=== PATIENT | female | born 1955 | race Caucasian/White ===

== ENCOUNTER 2017-12-12 11:24 | Observation (INO) ==
[2017-12-12] MEDS ORDERED: Aspirin 81 MG TAB.CHEW PO ONE (11:46)
--- NOTE | 2017-12-12 11:49 | Emergency Department Note ---
Disposition Clinical Impression: Chest pain Qualifiers: Chest pain type: unspecified Qualified Code(s): R07.9 - Chest pain, unspecified Disposition: Admitted As Inpatient Condition: Fair Referrals: Sharon Case MD [Primary Care Provider] - Forms: ED Satisfaction Letter Chest Pain HPI - General Chief Complaint: ED Chest Pain Stated Complaint: CP Time Seen by Provider: 12/12/17 11:37 Source: patient Limitations: no limitations Vital Signs Reviewed: Yes Nursing Notes Reviewed: Yes - History of Present Illness HPI Narrative: 62 old female presents emergency Department with chest pain. Approximately 6: 30 AM she was woke with chest pain and jaw pain pain was sharp in nature in the chest centrally radiating to the back and up into the jaw. Patient took several nitros and went back to bed. Woke up later and had a little bit of soreness. She says the pain is largely resolved. She came in because she has had 5 stents in 3 heart attacks. She says the pain from each one has been different and she is not sure if she is having a heart attack currently. No real sweating or diaphoresis. Patient denies shortness of breath. She says when she moves around the symptoms or maybe a little bit worsened and when she lies still she is okay. Pt complaint: chest pain Onset (ago): hour(s) Duration: intermittent, now resolved Onset: during rest Pain Location: substernal Severity: mild Severity scale (1-10): 2 Quality: sharp Pain Radiation: neck, jaw/teeth Improves with: nitroglycerin Worsens with: exertion Treatments prior to arrival chest pain: nitroglycerin - Related Data On Oral Contraceptives: No Home Medications Medication Instructions Recorded Confirmed Albuterol Sulfate [Proair Hfa] 2 puff IH Q4H PRN 09/10/15 12/12/17 Atenolol [Tenormin] 25 mg PO QAM 09/10/15 12/12/17 Clopidogrel [Plavix] 75 mg PO QAM 09/10/15 12/12/17 FLUoxetine HCl [PROzac] 20 mg PO QAM 09/10/15 12/12/17 Fenofibrate Nanocrystallized 145 mg PO QAM 09/10/15 12/12/17 [Tricor] Nitroglycerin [Nitrostat] 0.4 mg SL AD PRN 09/10/15 12/12/17 Pantoprazole Sodium [Protonix] 20 mg PO QAM 09/10/15 12/12/17 lamoTRIgine [Lamictal] 100 mg PO QAM 09/10/15 12/12/17 Aspirin Enteric Coated [Aspirin EC] 81 mg PO DAILY 12/12/17 12/12/17 Cholecalciferol (D-3) [Vitamin D] 5,000 unit PO DAILY 12/12/17 12/12/17 Loratadine/Pseudophed (12 HR) 1 tab PO DAILY 12/12/17 12/12/17 [Claritin D (12HR)] Losartan [Cozaar] 25 mg PO DAILY 12/12/17 12/12/17 Montelukast [Singulair] 10 mg PO DAILY 12/12/17 12/12/17 Ubidecarenone [Co Q-10] 10 mg PO DAILY 12/12/17 12/12/17 Allergies Allergy/AdvReac Type Severity Reaction Status Date / Time Penicillins Allergy Hives Verified 12/12/17 12:11 Nxfgzlb-Eue-Hoh Reductase Allergy Joint Pain Verified 12/12/17 12:11 Inhibitor [Statins] All systems ED: reviewed and negative except as stated. 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 - Social History Smoking Status: Current every day smoker Alcohol use: Reports: occasionally Drug use: Reports: marijuana Physical Exam - General Limitations: no limitations General appearance: alert, in no apparent distress - Head Head exam: atraumatic - Eye Eye exam: Present: normal appearance, PERRL - ENT ENT exam: normal exam, normal oropharynx - Neck Neck exam: Present: normal inspection - Chest Chest inspection: Present: normal inspection - Respiratory Respiratory exam: Present: normal lung sounds bilaterally - Cardiovascular Cardiovascular exam: Present: regular rate, normal rhythm - Abdominal Exam Abdominal exam: Present: soft, Non-Tender - Extremities Exam Extremities exam: Present: normal inspection - Expanded Lower Extremity Exam Hip/Pelvis exam: Present: normal inspection - Neurological Exam Neurological exam: Present: alert, oriented X3 - Psychiatric Psychiatric exam: Present: normal affect, normal mood - Skin Skin exam: Present: warm, dry, intact Course Vital Signs Temperature 97.8 F 12/12/17 11:31 Pulse Rate 81 12/12/17 11:31 Respiratory Rate 18 12/12/17 11:31 Blood Pressure 141/76 12/12/17 11:31 O2 Sat by Pulse Oximetry 94 12/12/17 11:31 Temperature 97.8 F 12/12/17 11:33 Pulse Rate 81 12/12/17 11:33 Respiratory Rate 18 12/12/17 11:33 Blood Pressure 141/76 12/12/17 11:33 O2 Sat by Pulse Oximetry 94 12/12/17 11:33 Oxygen Delivery Oxygen Delivery Room Air Chest Pain - MDM Narrative Medical decision making narrative: We will do a usual cardiac workup. We will also give the patient aspirin. Initial EKG does not show acute ischemic changes. There is no old one for comparison. Because of the patient's history she will end up getting admitted for formal rule out and additional evaluation and treatment. Patient was reevaluated several times throughout her stay she was pain-free throughout those assessments. Additionally she was informed of her test results and need for admission for further evaluation treatment. Discussed case and the hospitalist service who agreed to accept the patient for admission. Hemodynamically she remained stable while in the emergency department. - Lab Data Lab results reviewed: Yes I reviewed the patient's lab results. Result diagrams: 12/12/17 11:57 12/12/17 11:57 Lab Results 12/12/17 12/12/17 12/12/17 Range/Units 11:57 11:57 11:57 WBC 8.2 (4.3-11.1) K/mcL RBC 4.51 (3.82-4.97) M/mcL Hgb 14.1 (11.5-15.4) g/dL Hct 42.7 (35.3-44.9) % MCV 94.7 (83.0-100.0) fL MCH 31.3 (28.0-33.3) pg MCHC 33.0 (31.6-35.5) g/dL RDW 13.3 (11.5-14.5) % Plt Count 205 (140-400) K/mcL MPV 10.9 (9.4-12.4) fL Immature Gran % 0.4 (0-4) % Seg Neutrophils % 64.6 % Lymphocytes % 18.2 % Monocytes % 12.0 % Eosinophils % 4.2 % Basophils % 0.6 % Neutrophils # 5.3 (1.6-8.9) K/mcL Lymphocytes # 1.5 (0.6-4.6) K/mcL Monocytes # 1.0 (0.0-1.3) K/mcL Eosinophils # 0.3 (0.0-0.6) K/mcL Basophils # 0.1 (0.0-0.2) K/mcL PT 11.9 (9.4-12.1) Seconds INR 1.1 APTT 30.7 (26.0-36.0) Seconds Sodium (136-145) mEq/L Potassium (3.5-5.1) mEq/L Chloride (98-107) mEq/L Carbon Dioxide (23-29) mEq/L BUN (8-23) mg/dL Creatinine (0.60-1.20) mg/dL Est GFR ( Amer) (> 60) Est GFR (Non-Af Amer) (> 60) BUN/Creatinine Ratio (6-26) Glucose (70-105) mg/dL Calculated Osmolality (280-300) Calcium (8.6-10.3) mg/dL Troponin I (< 0.04) ng/mL B-Natriuretic Peptide 14 (Less than 100) pg/mL 12/12/17 Range/Units 11:57 WBC (4.3-11.1) K/mcL RBC (3.82-4.97) M/mcL Hgb (11.5-15.4) g/dL Hct (35.3-44.9) % MCV (83.0-100.0) fL MCH (28.0-33.3) pg MCHC (31.6-35.5) g/dL RDW (11.5-14.5) % Plt Count (140-400) K/mcL MPV (9.4-12.4) fL Immature Gran % (0-4) % Seg Neutrophils % % Lymphocytes % % Monocytes % % Eosinophils % % Basophils % % Neutrophils # (1.6-8.9) K/mcL Lymphocytes # (0.6-4.6) K/mcL Monocytes # (0.0-1.3) K/mcL Eosinophils # (0.0-0.6) K/mcL Basophils # (0.0-0.2) K/mcL PT (9.4-12.1) Seconds INR APTT (26.0-36.0) Seconds Sodium 137 (136-145) mEq/L Potassium 4.0 (3.5-5.1) mEq/L Chloride 105 (98-107) mEq/L Carbon Dioxide 24 (23-29) mEq/L BUN 23 (8-23) mg/dL Creatinine 0.70 (0.60-1.20) mg/dL Est GFR ( Amer) > 60 (> 60) Est GFR (Non-Af Amer) > 60 (> 60) BUN/Creatinine Ratio 33 H (6-26) Glucose 130 H (70-105) mg/dL Calculated Osmolality 289 (280-300) Calcium 9.5 (8.6-10.3) mg/dL Troponin I < 0.03 (< 0.04) ng/mL B-Natriuretic Peptide (Less than 100) pg/mL - Radiology Data Radiology results reviewed: Yes I reviewed the patient's radiology results. - EKG Data EKG attestation: Yes I reviewed and interpreted this EKG. EKG shows normal: sinus rhythm Rate: normal Rhythm: NSR Interpretation: no acute changes
[2017-12-12 12:13] LABS: Basophils # 0.1 K/mcL (0.0-0.2); Basophils % 0.6 %; Eosinophils # 0.3 K/mcL (0.0-0.6); Eosinophils % 4.2 %; Hematocrit 42.7 % (35.3-44.9); Hemoglobin 14.1 g/dL (11.5-15.4); Immature Granulocytes % 0.4 % (0-4); Lymphocytes # 1.5 K/mcL (0.6-4.6); Lymphocytes % 18.2 %; Mean Corpuscular Hemoglobin 31.3 pg (28.0-33.3); Mean Corpuscular Volume 94.7 fL (83.0-100.0); Mean Platelet Volume 10.9 fL (9.4-12.4); Neutrophils # 5.3 K/mcL (1.6-8.9); Platelet Count 205 K/mcL (140-400); Red Blood Count 4.51 M/mcL (3.82-4.97); Red Cell Distribution Width 13.3 % (11.5-14.5); Segmented Neutrophils % 64.6 %
[2017-12-12 12:22] LABS: INR 1.1; Prothrombin Time 11.9 Seconds (9.4-12.1)
[2017-12-12 12:25] LABS: Activated Partial Thrombo Time 30.7 Seconds (26.0-36.0)
[2017-12-12 13:11] LABS: Troponin I < 0.03 ng/mL (< 0.04)
[2017-12-12 13:16] LABS: BUN/Creatinine Ratio 33 (6-26); Blood Urea Nitrogen 23 mg/dL (8-23); Calcium 9.5 mg/dL (8.6-10.3); Carbon Dioxide 24 mEq/L (23-29); Chloride 105 mEq/L (98-107); Glucose 130 mg/dL (70-105); Osmolality,Calculated 289 (280-300); Sodium 137 mEq/L (136-145); eGFR For African Americans > 60 (> 60); eGFR For Non-African Americans > 60 (> 60)
--- NOTE | 2017-12-12 14:04 | Internal Med History&Physical ---
Date of Encounter: 12/12/17 Time of Encounter: 13:57 Internal Medicine - H&P: HPI Chief complaint: chest pain Admitted From: Home Plans for Post Hospital Care: Home History of present illness: Ms. Kaplan is a 62 year old female who has history of a CAD multiple stents depression anxiety chronic back pain presenting emergency room for chest pain. Chest pain started at 6:30 AM located to the mid of chest, pressure-like, radiated to the back, associated jaw pain, any numbing tingling all over the body. She took her several nitrates went to sleep. after she woke up,she had lightheadedness and the some tingling numbing all over again. Patient is alert oriented 3 currently chest pain free. Lab Was unremarkable, troponin is negative, EKG has no ST elevation. Patient has CAD stated post of 5 stents, last the stents was 2011. She follows with Dr. Abraham, last stress test in August 2015 was negative for ischemia. Patient continues smoking, half pack daily we will provide a nicotine patch. She also has some wheezings from COPD. Patient is admitted to rule out [place] will do a CTA to rule out aneurysm. Past Med Surg Social Fam HX - Past Medical History Medical history: myocardial infarction Psychiatric history: depression - Past Surgical History Surgical History: no surgical history - Social History Smoking Status: Current every day smoker Smokeless Tobacco Status: No Alcohol use: occasionally Drug use: marijuana - Family History Father Living Status: Hx Family Cardiac Disorders: Yes Hx Family Respiratory Disorders: Yes Internal Medicine - H&P: Meds Albuterol Sulfate [Proair Hfa] 2 puff IH Q4H PRN 09/10/15 [History] Atenolol [Tenormin] 25 mg PO QAM 09/10/15 [History] Clopidogrel [Plavix] 75 mg PO QAM 09/10/15 [History] FLUoxetine HCl [PROzac] 20 mg PO QAM 09/10/15 [History] Fenofibrate Nanocrystallized [Tricor] 145 mg PO QAM 09/10/15 [History] Nitroglycerin [Nitrostat] 0.4 mg SL AD PRN 09/10/15 [History] Pantoprazole Sodium [Protonix] 20 mg PO QAM 09/10/15 [History] lamoTRIgine [Lamictal] 100 mg PO QAM 09/10/15 [History] Aspirin Enteric Coated [Aspirin EC] 81 mg PO DAILY 12/12/17 [History] Cholecalciferol (D-3) [Vitamin D] 5,000 unit PO DAILY 12/12/17 [History] Loratadine/Pseudophed (12 HR) [Claritin D (12HR)] 1 tab PO DAILY 12/12/17 [ History] Losartan [Cozaar] 25 mg PO DAILY 12/12/17 [History] Montelukast [Singulair] 10 mg PO DAILY 12/12/17 [History] Ubidecarenone [Co Q-10] 10 mg PO DAILY 12/12/17 [History] 3 Allergy/AdvReac Type Severity Reaction Status Date / Time Penicillins Allergy Hives Verified 12/12/17 12:11 Rqbxqkj-Oim-Fgq Reductase Allergy Joint Pain Verified 12/12/17 12:11 Inhibitor [Statins] All Systems PM: A 10-system review of systems was performed and is negative for pertinent findings except as documented above in the HPI. - Constitutional Vitals: Temp Pulse Resp BP Pulse Ox 97.8 F 85 18 132/98 96 12/12/17 11:33 12/12/17 13:40 12/12/17 13:40 12/12/17 13:40 12/12/17 13:40 General appearance: Present: A&O X 3, pleasant, answers questions appropriately Exam: CONSTITUTIONAL: Patient appears as an age appropriate female well developed, in no acute distress. EYES Clear sclerae, bilateral pupils are equal, reactive to light and accommodation. Extraocular movements are intact RESPIRATORY: No accessory muscle use, bilateral scant wheezing, no crackles/ rales. CARDIOVASCULAR: Regular heart rate, normal S1 and S2, no murmurs GASTROINTESTINAL: bowel sounds present, soft, no tenderness. No hepatosplenomegaly. No bilateral CVA tenderness MUSCULOSKELETAL: Joints in normal range of motion, no clubbing, no edema, no cyanosis. Bilateral peripheral pulses 2+ LYMPHATIC no lymphadenopathy in neck, groin and axilla bilaterally, no thyromegaly. NEUROLOGIC: CN II to XII are grossly intact, no focal neurological deficit. Deep tendon reflexes 2+ bilaterally. Normal light touch sensation to upper and lower extremity PSYCHIATRIC: Oriented x3, with good insight, mood is euthymic. No hallucinations or delusions. SKIN: Skin warm and dry, no rashes, no open wound. Internal Med - H&P Results - Labs CBC & Chem 7: 12/12/17 11:57 12/12/17 11:57 Labs: Short CBC 12/12/17 Range/Units 11:57 WBC 8.2 (4.3-11.1) K/mcL Hgb 14.1 (11.5-15.4) g/dL Hct 42.7 (35.3-44.9) % Plt Count 205 (140-400) K/mcL Neutrophils # 5.3 (1.6-8.9) K/mcL BMP 12/12/17 11:57 Sodium 137 Potassium 4.0 Chloride 105 Carbon Dioxide 24 BUN 23 Creatinine 0.70 Glucose 130 H Calcium 9.5 Cardiac Enzymes 12/12/17 Range/Units 11:57 Troponin I < 0.03 (< 0.04) ng/mL - Impressions ITS Impressions Chest X-Ray 12/12/17 11:46 IMPRESSION: Stable chest without acute process. D/ / 12/12/2017 12:29:10 Austin Myers MD / [facility] Interpreting Provider: Austin Myers MD - Assessment and plan (1) Chest pain Current Visit: Yes Status: Acute Assessment and plan: chest pain insetting of CAD, will follow up 3 trop will do aneurysm study due to smoking hx to r/o dissection Qualifiers: Chest pain type: unspecified Qualified Code(s): R07.9 - Chest pain, unspecified (2) CAD (coronary artery disease) Current Visit: Yes Status: Chronic Assessment and plan: contineu ASA, plavix Qualifiers: Coronary Disease-Associated Artery/Lesion type: [place] artery [place] vs. transplanted heart: [place] heart Associated angina: with unspecified angina Qualified Code(s): I25.119 - Atherosclerotic heart disease of [place] coronary artery with unspecified angina pectoris (3) HLD (hyperlipidemia) Current Visit: Yes Status: Acute Qualifiers: Hyperlipidemia type: unspecified Qualified Code(s): E78.5 - Hyperlipidemia , unspecified (4) HTN (hypertension) Current Visit: Yes Status: Chronic Qualifiers: Hypertension type: essential hypertension Qualified Code(s): I10 - Essential (primary) hypertension (5) Depression Current Visit: Yes Status: Chronic Qualifiers: Depression Type: unspecified Qualified Code(s): F32.9 - Major depressive disorder, single episode, unspecified (6) Tobacco abuse Current Visit: Yes Status: Chronic Assessment and plan: smoking cessation discussed, nicotine patch - Time Spent With Patient Total time spent is greater than 50% in coordination of care (as documented) at patient's floor/unit and/or counseling patient:
[2017-12-12] MEDS ORDERED: Nitroglycerin 0.4 MG TAB.SUBL SL PRN (14:06)
[2017-12-12] MEDS ORDERED: Naloxone 0.4 MG/ML INJ IVP PRN (14:12)
[2017-12-12] MEDS ORDERED: Isovue-370 500 ML INFUS..BTL IV ONE (14:15)
[2017-12-12] MEDS: Ringers Solution, Lactated 1,000 ML IVC SCH (14:58)
[2017-12-12] MEDS: Nicotine 21 MG PATCH.TD24 TD SCH (16:42)
[2017-12-13 02:50] LABS: BUN/Creatinine Ratio 28 (6-26); Blood Urea Nitrogen 19 mg/dL (8-23); Calcium 9.6 mg/dL (8.6-10.3); Carbon Dioxide 25 mEq/L (23-29); Chloride 106 mEq/L (98-107); Glucose 105 mg/dL (70-105); Magnesium 1.9 mg/dL (1.6-2.6); Osmolality,Calculated 287 (280-300); Potassium 3.7 mEq/L (3.5-5.1); Sodium 137 mEq/L (136-145); eGFR For African Americans > 60 (> 60); eGFR For Non-African Americans > 60 (> 60)
[2017-12-13] MEDS ORDERED: Loratadine/Pseudophed (12 HR) 1 EACH TABLET PO SCH (09:00)
[2017-12-13] MEDS ORDERED: Fenofibrate 54 MG TABLET PO SCH (09:00)
[2017-12-13] MEDS ORDERED: FLUoxetine 20 MG CAPSULE PO SCH (09:00)
[2017-12-13] MEDS ORDERED: Aspirin Enteric Coated 81 MG Tablet PO SCH (09:00)
[2017-12-13] MEDS ORDERED: lamoTRIgine 100 MG TABLET PO SCH (09:00)
[2017-12-13] MEDS ORDERED: UBIDECARENONE 10 MG PO SCH (09:00)
[2017-12-13] MEDS ORDERED: Cholecalciferol (D-3) 1,000 UNIT TABLET PO SCH (09:00)
[2017-12-13] MEDS: Nicotine 21 MG PATCH.TD24 TD SCH (09:30)
[2017-12-13] MEDS: Ringers Solution, Lactated 1,000 ML IVC SCH (09:36)
[2017-12-13 12:59] VITALS: BP 102/69
--- NOTE | 2017-12-13 13:44 | Discharge Summary ---
- NOTES TO OUTPATIENT PROVIDER Notes to Outpatient Provider: Pt was admitted for chest pain with associated lightheadedness, tingling, chanda jaw pain and facial pain that was relieved with ntg. Stress negative in Aug with a gated EF of greater than 70%. Patient has not had an echocardiogram. Troponins are negative. Recommended patient stay for echocardiogram, patient declined and signed out AMA. I recommended patient follow-up with cardiology, as well as primary care. She says that she is going to be worked up for GI symptoms with an EGD in the near future. Orders not resulted at time of discharge: Pending orders 12/12/17 14:12 ECG 12 lead ECG [ECG] Routine 12/13/17 13:01 EV echocardiogram Routine 12/14/17 04:00 Basic Metabolic Panel AM 0400 Complete Blood Count [HEME] AM 0400 Date of Encounter: 12/13/17 Time of Encounter: 13:10 - Discharge Diagnosis (1) Chest pain Priority: Primary Status: Acute Assessment and Plan: Pt denies chest pain upon assessment. REports that she had chest pain with associated facial and jaw pain that was relieved with NTG x1 prior to arrival. pt reports that pain stated at 0630 a.m. onthe morning of admission and was described as pressure with radiation to left mid back, and numbness and tingling to entire body. Prior history of MD and CAD with 5 stents, most recently in 2011. . Troponins negative, CXR negative, EKG without acute ST changes. Stress from 2016 negative. Pt did not wish to stay for echo and states that she wants to go home. I recommended echo and cardiology consultation and pt declined, states that she wants to go home. Pt with multiple risk factors including morbid obesity, smoking, HTN, HLD, and DM. Pt is going to sign out AMA. Qualifiers: Chest pain type: unspecified Qualified Code(s): R07.9 - Chest pain, unspecified (2) HLD (hyperlipidemia) Priority: Secondary Status: Chronic Assessment and Plan: Continue home medications. Qualifiers: Hyperlipidemia type: unspecified Qualified Code(s): E78.5 - Hyperlipidemia , unspecified (3) CAD (coronary artery disease) Priority: Secondary Status: Chronic Assessment and Plan: Continue ASA, Plavix, Tricor, and antihypertensives. Pt does not appear to be on BB. Qualifiers: Coronary Disease-Associated Artery/Lesion type: [place] artery [place] vs. transplanted heart: [place] heart Associated angina: with unspecified angina Qualified Code(s): I25.119 - Atherosclerotic heart disease of [place] coronary artery with unspecified angina pectoris (4) Depression Priority: Secondary Status: Chronic Assessment and Plan: Chronic. Continue home medications. Qualifiers: Depression Type: unspecified Qualified Code(s): F32.9 - Major depressive disorder, single episode, unspecified (5) HTN (hypertension) Priority: Secondary Status: Chronic Assessment and Plan: Chronic. Stable. Continue home medications. Qualifiers: Hypertension type: essential hypertension Qualified Code(s): I10 - Essential (primary) hypertension (6) DMII (diabetes mellitus, type 2) Priority: Secondary Status: Chronic Assessment and Plan: Pt is not on any po medications. Continue diet control, last A1c 5.5% in 03/05 Qualifiers: Diabetes mellitus complication status: with unspecified complications Qualified Code(s): E11.8 - Type 2 diabetes mellitus with unspecified complications (7) DVT prophylaxis Priority: Secondary Status: Acute Assessment and Plan: Pt has been ambulatory (8) History of heart attack Priority: Secondary Status: Chronic Assessment and Plan: Prior history. Hospital course: Ms. Kaplan is a 62 year old female - Time Spent with Patient Total time spent providing and/or coordinating discharge services: - Discharge Medications Home Medications: Albuterol Sulfate [Proair Hfa] 2 puff IH Q4H PRN 09/10/15 [History] Atenolol [Tenormin] 25 mg PO QAM 09/10/15 [History] Clopidogrel [Plavix] 75 mg PO QAM 09/10/15 [History] FLUoxetine HCl [Prozac] 20 mg PO QAM 09/10/15 [History] Fenofibrate Nanocrystallized [Tricor] 145 mg PO QAM 09/10/15 [History] Nitroglycerin [Nitrostat] 0.4 mg SL AD PRN 09/10/15 [History] Pantoprazole Sodium [Protonix] 20 mg PO QAM 09/10/15 [History] lamoTRIgine [Lamictal] 100 mg PO QAM 09/10/15 [History] Aspirin Enteric Coated [Aspirin EC] 81 mg PO DAILY 12/12/17 [History] Cholecalciferol (D-3) [Vitamin D] 5,000 unit PO DAILY 12/12/17 [History] Loratadine/Pseudophed (12 HR) [Claritin D (12HR)] 1 tab PO DAILY 12/12/17 [ History] Losartan [Cozaar] 25 mg PO DAILY 12/12/17 [History] Montelukast [Singulair] 10 mg PO DAILY 12/12/17 [History] Ubidecarenone [Co Q-10] 10 mg PO DAILY 12/12/17 [History] Allergies/Adverse Reactions: 3 Allergy/AdvReac Type Severity Reaction Status Date / Time Penicillins Allergy Hives Verified 12/12/17 12:11 Woykndl-Rno-Swv Reductase Allergy Joint Pain Verified 12/12/17 12:11 Inhibitor [Statins] Date of admission: 12/12/17 13:59 Primary care physician: Sharon Case Discharging clinician: Rebecca Chaudhary Anticipated date of discharge: 12/13/17 - Constitutional Vitals: Temp Pulse Resp BP Pulse Ox 98.9 F 50 14 102/69 98 12/13/17 12:58 12/13/17 12:58 12/13/17 12:58 12/13/17 12:58 12/13/17 12:58 General appearance: Present: cooperative, A&O X 3, pleasant, no acute distress, answers questions appropriately - Head Head exam: Present: atraumatic, normal inspection, normocephalic - Eye Eye exam: Present: normal appearance, conjuntiva pink, sclera anicteric - Neck Neck exam general surgery: Present: supple, trachea midline. Absent: lymphadenopathy, tenderness - Respiratory Respiratory exam: Present: CTAB. Absent: accessory muscle use, chest wall tenderness, rales, respiratory distress, rhonchi, wheezes - Cardiovascular Cardiovascular exam: Present: RRR, +S1, +S2. Absent: diastolic murmur, gallop, rubs, systolic murmur - GI/Abdominal GI/Abdominal exam: Present: normal bowel sounds, soft, no peritoneal signs. Absent: distended, hepatomegaly, tenderness - Extremities Exam Extremities exam: Present: normal capillary refill, normal inspection, warm, radial pulses palpable and symmetrical. Absent: calf tenderness, cyanotic, pedal edema, tenderness - Neurological Exam Neurological exam: Present: alert, oriented X3, no focal deficits. Absent: altered, facial droop, speech deficit - Skin Skin exam: Present: dry, intact, normal color, warm. Absent: rash - Patient Status Disposition: Left Against Medical Advice Condition: Good - Discharge Instructions Follow Up With: Sharon Case MD [Primary Care Provider] -
--- NOTE | 2017-12-15 12:40 | Electrocardiograph Report ---
[place] [id number] Test Date: 2017-12-12 Pat Name: [facility] Department: [facility] Room: 3B Gender: F Resource Program Teacher: SHAR : 1955 Requested By: Guy Castillo Order Number: [id number] Reading MD: Jayson Abraham Measurements Intervals [place] Rate: 77 P: 7 CA: 175 QRS: 9 QRSD: 86 T: 56 QT: 371 QTc: 402 Interpretive Statements SINUS RHYTHM POSSIBLE LEFT ATRIAL ENLARGEMENT POSSIBLE RIGHT VENTRICULAR CONDUCTION DELAY Electronically Signed On 12-15-2017 12:39:26 EDT by Jayson Abraham
== END 2017-12-13 14:35 | disposition left against medical advice (07) ==
LOC: 3BNU 11:24 → EMEROO 11:24 → 3BNU 14:32
PROVIDERS: ADMIT Hospitalist; ATTEND Hospitalist

== ENCOUNTER 2019-11-18 08:44 | Inpatient (IN) ==
[2019-11-18] MEDS ORDERED: Nitroglycerin 0.4 MG TAB.SUBL SL PRN ×2 (08:45→10:09)
[2019-11-18] MEDS ORDERED: Aspirin 81 MG TAB.CHEW PO ONE (08:45)
[2019-11-18 09:13] LABS: Basophils # 0.1 K/mcL (0.0-0.2); Basophils % 0.6 %; Eosinophils # 0.3 K/mcL (0.0-0.6); Eosinophils % 3.6 %; Hematocrit 41.4 % (35.3-44.9); Hemoglobin 13.4 g/dL (11.5-15.4); Immature Granulocytes % 0.5 % (0-4); Lymphocytes # 1.7 K/mcL (0.6-4.6); Lymphocytes % 19.5 %; Mean Corpuscular HGB Conc 32.4 g/dL (31.6-35.5); Mean Corpuscular Volume 95.8 fL (83.0-100.0); Mean Platelet Volume 10.9 fL (9.4-12.4); Monocytes # 1.2 K/mcL (0.0-1.3); Monocytes % 13.3 %; Neutrophils # 5.4 K/mcL (1.6-8.9); Platelet Count 219 K/mcL (140-400); Red Blood Count 4.32 M/mcL (3.82-4.97); Red Cell Distribution Width 13.2 % (11.5-14.5); Segmented Neutrophils % 62.5 %; White Blood Count 8.7 K/mcL (4.3-11.1)
[2019-11-18 09:19] LABS: Prothrombin Time 11.6 Seconds (9.4-12.1)
[2019-11-18 09:22] LABS: Activated Partial Thrombo Time 31.5 Seconds (26.0-36.0)
[2019-11-18 09:33] LABS: BUN/Creatinine Ratio 29 (6-26); Blood Urea Nitrogen 26 mg/dL (8-23); Calcium 9.6 mg/dL (8.6-10.3); Carbon Dioxide 23 mEq/L (23-29); Chloride 102 mEq/L (98-107); Glucose 135 mg/dL (70-105); Osmolality,Calculated 287 (280-300); Sodium 135 mEq/L (136-145); Troponin I < 0.03 ng/mL (< 0.04); eGFR For African Americans > 60 (> 60); eGFR For Non-African Americans > 60 (> 60)
[2019-11-18] MEDS ORDERED: Naloxone 0.4 MG/ML INJ IVP PRN (10:08)
[2019-11-18] MEDS: Fenofibrate 54 MG TABLET PO SCH (11:36)
[2019-11-18] MEDS: Aspirin Enteric Coated 81 MG Tablet PO SCH (11:36)
[2019-11-18] MEDS: FLUoxetine 20 MG CAPSULE PO SCH (11:36)
[2019-11-18] MEDS: Cholecalciferol (D-3) 1,000 UNIT (25MCG) TABLET PO SCH (11:36)
[2019-11-18] MEDS: atenoloL 25 MG TABLET PO SCH (11:36)
[2019-11-18] MEDS: Simethicone 80 MG TAB.CHEW PO PRN (19:52)
[2019-11-19 01:02] LABS: Basophils # 0.1 K/mcL (0.0-0.2); Basophils % 0.7 %; Eosinophils # 0.2 K/mcL (0.0-0.6); Eosinophils % 2.6 %; Hematocrit 39.9 % (35.3-44.9); Immature Granulocytes % 0.3 % (0-4); Lymphocytes # 2.3 K/mcL (0.6-4.6); Lymphocytes % 26.1 %; Mean Corpuscular HGB Conc 32.6 g/dL (31.6-35.5); Mean Corpuscular Hemoglobin 31.2 pg (28.0-33.3); Mean Corpuscular Volume 95.7 fL (83.0-100.0); Mean Platelet Volume 11.1 fL (9.4-12.4); Monocytes # 1.2 K/mcL (0.0-1.3); Monocytes % 13.8 %; Platelet Count 213 K/mcL (140-400); Red Blood Count 4.17 M/mcL (3.82-4.97); Red Cell Distribution Width 13.2 % (11.5-14.5); Segmented Neutrophils % 56.5 %; White Blood Count 8.8 K/mcL (4.3-11.1)
[2019-11-19 01:04] LABS: Estimated Average Glucose 134 mg/dl
[2019-11-19 01:18] LABS: Chol/HDL Ratio 2.3 (0-4.9)
[2019-11-19 01:19] LABS: BUN/Creatinine Ratio 24 (6-26); Blood Urea Nitrogen 23 mg/dL (8-23); Calcium 9.7 mg/dL (8.6-10.3); Carbon Dioxide 25 mEq/L (23-29); Chloride 102 mEq/L (98-107); Glucose 112 mg/dL (70-105); Osmolality,Calculated 284 (280-300); Potassium 4.1 mEq/L (3.5-5.1); Sodium 135 mEq/L (136-145); eGFR For African Americans > 60 (> 60); eGFR For Non-African Americans 58 (> 60)
[2019-11-19] MEDS ORDERED: Regadenoson 0.4 MG/5 ML SYRINGE IVP ONE (06:10)
[2019-11-19] MEDS ORDERED: lamoTRIgine 100 MG TABLET PO SCH (09:00)
[2019-11-19] MEDS: Cholecalciferol (D-3) 1,000 UNIT (25MCG) TABLET PO SCH (12:41)
[2019-11-19] MEDS: Isosorbide MONOnitrate (24 HR) 30 MG TAB.ER.24H PO SCH (12:41)
[2019-11-19] MEDS: atenoloL 25 MG TABLET PO SCH (12:41)
[2019-11-19] MEDS: FLUoxetine 20 MG CAPSULE PO SCH (12:41)
[2019-11-19] MEDS: lamoTRIgine 100 MG TABLET PO SCH (12:41)
[2019-11-19] MEDS: Aspirin Enteric Coated 81 MG Tablet PO SCH (12:41)
[2019-11-19] MEDS: Fenofibrate 54 MG TABLET PO SCH (12:41)
[2019-11-19] MEDS: PRAVASTATIN SODIUM 20 MG PO SCH (12:43)
[2019-11-19] MEDS: Simethicone 80 MG TAB.CHEW PO PRN (20:39)
[2019-11-19] MEDS ORDERED: Morphine Sulfate 2 MG/ML SYRINGE IVP ONE (23:06)
[2019-11-20] MEDS: Fenofibrate 54 MG TABLET PO SCH (09:45)
[2019-11-20] MEDS: Aspirin Enteric Coated 81 MG Tablet PO SCH (09:45)
[2019-11-20] MEDS: Isosorbide MONOnitrate (24 HR) 30 MG TAB.ER.24H PO SCH (09:45)
[2019-11-20] MEDS: atenoloL 25 MG TABLET PO SCH (09:45)
[2019-11-20] MEDS: FLUoxetine 20 MG CAPSULE PO SCH (09:46)
[2019-11-20] MEDS: Cholecalciferol (D-3) 1,000 UNIT (25MCG) TABLET PO SCH (09:46)
[2019-11-20] MEDS: lamoTRIgine 100 MG TABLET PO SCH (09:46)
[2019-11-20] MEDS: PRAVASTATIN SODIUM 20 MG PO SCH (09:48)
[2019-11-20] MEDS: Simethicone 80 MG TAB.CHEW PO PRN (20:27)
[2019-11-21] MEDS: FLUoxetine 20 MG CAPSULE PO SCH (07:52)
[2019-11-21] MEDS: Aspirin Enteric Coated 81 MG Tablet PO SCH (07:52)
[2019-11-21] MEDS: lamoTRIgine 100 MG TABLET PO SCH (07:52)
[2019-11-21] MEDS: Isosorbide MONOnitrate (24 HR) 30 MG TAB.ER.24H PO SCH (07:52)
[2019-11-21] MEDS: atenoloL 25 MG TABLET PO SCH (07:52)
[2019-11-21] MEDS: Cholecalciferol (D-3) 1,000 UNIT (25MCG) TABLET PO SCH (07:53)
[2019-11-21] MEDS: Fenofibrate 54 MG TABLET PO SCH (07:54)
[2019-11-21] MEDS: PRAVASTATIN SODIUM 20 MG PO SCH (07:56)
[2019-11-21] MEDS ORDERED: 0.9 % Sodium Chloride 1,000 ML ONE ×2 (08:50→14:39)
[2019-11-21] MEDS ORDERED: *HR* FentaNYL (PF) 100 MCG/2 ML VIAL ONE (09:00)
[2019-11-21] MEDS ORDERED: *HR* Midazolam HCl 2 MG/2 ML VIAL ONE (09:00)
[2019-11-21] MEDS ORDERED: Nitroglycerin 1,000 MCG/10 ML VIAL IV ONE (14:39)
[2019-11-21] MEDS ORDERED: Heparin 1,000 UNITS/500 mL 500 ML ONE (14:39)
[2019-11-21] MEDS ORDERED: *HR* Heparin 10,000 UNIT/10 ML VIAL ONE (14:39)
[2019-11-21] MEDS ORDERED: ISOVUE-370 200 ML INFUS..BTL ONE (14:39)
[2019-11-21] MEDS ORDERED: Perflutren Lipid Microsphere 1.3 ML in 0.9 % Sodium Chloride 8.7 ML IVP ONE (17:22)
[2019-11-22] MEDS: Fenofibrate 54 MG TABLET PO SCH (09:45)
[2019-11-22] MEDS: lamoTRIgine 100 MG TABLET PO SCH (09:45)
[2019-11-22] MEDS: Isosorbide MONOnitrate (24 HR) 30 MG TAB.ER.24H PO SCH (09:45)
[2019-11-22] MEDS: atenoloL 25 MG TABLET PO SCH (09:45)
[2019-11-22] MEDS: Aspirin Enteric Coated 81 MG Tablet PO SCH (09:45)
[2019-11-22] MEDS: Cholecalciferol (D-3) 1,000 UNIT (25MCG) TABLET PO SCH (09:45)
[2019-11-22] MEDS: FLUoxetine 20 MG CAPSULE PO SCH (09:45)
[2019-11-22] MEDS ORDERED: Loratadine 10 MG TABLET PO SCH (10:00)
[2019-11-22] MEDS: Loratadine 10 MG TABLET PO SCH (11:25)
[2019-11-22] MEDS: *HR* Heparin 5,000 UNIT/ML VIAL SQ SCH (16:41)
[2019-11-23] MEDS: *HR* Heparin 5,000 UNIT/ML VIAL SQ SCH ×2 (05:39→18:00)
[2019-11-23] MEDS: FLUoxetine 20 MG CAPSULE PO SCH (08:35)
[2019-11-23] MEDS: Loratadine 10 MG TABLET PO SCH (08:35)
[2019-11-23] MEDS: Cholecalciferol (D-3) 1,000 UNIT (25MCG) TABLET PO SCH (08:35)
[2019-11-23] MEDS: Isosorbide MONOnitrate (24 HR) 30 MG TAB.ER.24H PO SCH (08:35)
[2019-11-23] MEDS: Fenofibrate 54 MG TABLET PO SCH (08:35)
[2019-11-23] MEDS: Aspirin Enteric Coated 81 MG Tablet PO SCH (08:35)
[2019-11-23] MEDS: atenoloL 25 MG TABLET PO SCH (08:36)
[2019-11-23] MEDS: lamoTRIgine 100 MG TABLET PO SCH (08:36)
[2019-11-23] MEDS ORDERED: *HR* OxyCODONE/APAP 5/325 TABLET PO ONE (15:08)
[2019-11-23] MEDS: (Pravastatin Sodium 10 MG) PO SCH (15:27)
[2019-11-23] MEDS ORDERED: Acetaminophen 325 MG TABLET PO ONE (23:43)
[2019-11-24] MEDS: FLUoxetine 20 MG CAPSULE PO SCH (08:16)
[2019-11-24] MEDS: Isosorbide MONOnitrate (24 HR) 30 MG TAB.ER.24H PO SCH (08:16)
[2019-11-24] MEDS: Aspirin Enteric Coated 81 MG Tablet PO SCH (08:16)
[2019-11-24] MEDS: Fenofibrate 54 MG TABLET PO SCH (08:16)
[2019-11-24] MEDS: Loratadine 10 MG TABLET PO SCH (08:16)
[2019-11-24] MEDS: Cholecalciferol (D-3) 1,000 UNIT (25MCG) TABLET PO SCH (08:17)
[2019-11-24] MEDS: lamoTRIgine 100 MG TABLET PO SCH (08:17)
[2019-11-24] MEDS: *HR* Heparin 5,000 UNIT/ML VIAL SQ SCH ×2 (08:17→19:49)
[2019-11-24] MEDS: (Pravastatin Sodium 10 MG) PO SCH (08:17)
[2019-11-24] MEDS: atenoloL 25 MG TABLET PO SCH (08:17)
[2019-11-24] MEDS ORDERED: Dextrose Gel 15 GM/37.5 ML TUBE PO PRN ×2 (12:41)
[2019-11-24] MEDS ORDERED: D5% in Water 1,000 ML IVC PRN (12:41)
[2019-11-24] MEDS ORDERED: *HR* Dextrose 50 % in Water (Syg) 50 ML SYRINGE IVP PRN (12:41)
[2019-11-24] MEDS: Insulin LISPRO 300 UNITS/3 ML VIAL SQ SCH (19:47)
[2019-11-24] MEDS: Simethicone 80 MG TAB.CHEW PO PRN (19:49)
[2019-11-25] MEDS: *HR* Heparin 5,000 UNIT/ML VIAL SQ SCH ×2 (05:58→17:01)
[2019-11-25] MEDS: Insulin LISPRO 300 UNITS/3 ML VIAL SQ SCH ×3 (08:07→16:37)
[2019-11-25] MEDS: FLUoxetine 20 MG CAPSULE PO SCH (08:39)
[2019-11-25] MEDS: Isosorbide MONOnitrate (24 HR) 30 MG TAB.ER.24H PO SCH (08:39)
[2019-11-25] MEDS: Loratadine 10 MG TABLET PO SCH (08:39)
[2019-11-25] MEDS: atenoloL 25 MG TABLET PO SCH (08:39)
[2019-11-25] MEDS: Cholecalciferol (D-3) 1,000 UNIT (25MCG) TABLET PO SCH (08:39)
[2019-11-25] MEDS: Fenofibrate 54 MG TABLET PO SCH (08:39)
[2019-11-25] MEDS: Aspirin Enteric Coated 81 MG Tablet PO SCH (08:39)
[2019-11-25] MEDS: lamoTRIgine 100 MG TABLET PO SCH (08:39)
[2019-11-25] MEDS: (Pravastatin Sodium 10 MG) PO SCH (08:40)
[2019-11-25] MEDS: Acetaminophen 325 MG TABLET PO PRN ×2 (11:39→19:31)
[2019-11-26 05:12] LABS: Basophils % 0.6 %; Eosinophils # 0.3 K/mcL (0.0-0.6); Hematocrit 38.6 % (35.3-44.9); Hemoglobin 12.5 g/dL (11.5-15.4); Immature Granulocytes % 0.3 % (0-4); Lymphocytes # 2.1 K/mcL (0.6-4.6); Lymphocytes % 29.7 %; Mean Corpuscular HGB Conc 32.4 g/dL (31.6-35.5); Mean Corpuscular Volume 95.8 fL (83.0-100.0); Mean Platelet Volume 11.1 fL (9.4-12.4); Monocytes # 1.1 K/mcL (0.0-1.3); Monocytes % 15.7 %; Neutrophils # 3.5 K/mcL (1.6-8.9); Platelet Count 201 K/mcL (140-400); Red Blood Count 4.03 M/mcL (3.82-4.97); Segmented Neutrophils % 49.7 %
[2019-11-26 05:21] LABS: BUN/Creatinine Ratio 31 (6-26); Blood Urea Nitrogen 27 mg/dL (8-23); Calcium 9.1 mg/dL (8.6-10.3); Carbon Dioxide 26 mEq/L (23-29); Chloride 102 mEq/L (98-107); Glucose 102 mg/dL (70-105); Osmolality,Calculated 289 (280-300); Potassium 4.1 mEq/L (3.5-5.1); Sodium 137 mEq/L (136-145); eGFR For African Americans > 60 (> 60); eGFR For Non-African Americans > 60 (> 60)
[2019-11-26] MEDS: *HR* Heparin 5,000 UNIT/ML VIAL SQ SCH ×2 (05:41→18:11)
[2019-11-26] MEDS: Loratadine 10 MG TABLET PO SCH (09:12)
[2019-11-26] MEDS: atenoloL 25 MG TABLET PO SCH (09:12)
[2019-11-26] MEDS: Insulin LISPRO 300 UNITS/3 ML VIAL SQ SCH ×3 (09:12→17:17)
[2019-11-26] MEDS: Aspirin Enteric Coated 81 MG Tablet PO SCH (09:12)
[2019-11-26] MEDS: Fenofibrate 54 MG TABLET PO SCH (09:12)
[2019-11-26] MEDS: Cholecalciferol (D-3) 1,000 UNIT (25MCG) TABLET PO SCH (09:12)
[2019-11-26] MEDS: Isosorbide MONOnitrate (24 HR) 30 MG TAB.ER.24H PO SCH (09:13)
[2019-11-26] MEDS: lamoTRIgine 100 MG TABLET PO SCH (09:13)
[2019-11-26] MEDS: FLUoxetine 20 MG CAPSULE PO SCH (09:13)
[2019-11-26] MEDS: (Pravastatin Sodium 10 MG) PO SCH (09:14)
[2019-11-26] MEDS: Acetaminophen 325 MG TABLET PO PRN ×2 (09:41→19:14)
[2019-11-27] MEDS: *HR* Heparin 5,000 UNIT/ML VIAL SQ SCH ×2 (05:50→18:26)
[2019-11-27] MEDS: Insulin LISPRO 300 UNITS/3 ML VIAL SQ SCH ×3 (09:16→16:43)
[2019-11-27] MEDS: (Pravastatin Sodium 10 MG) PO SCH (09:16)
[2019-11-27] MEDS: Cholecalciferol (D-3) 1,000 UNIT (25MCG) TABLET PO SCH (09:17)
[2019-11-27] MEDS: atenoloL 25 MG TABLET PO SCH (09:17)
[2019-11-27] MEDS: Isosorbide MONOnitrate (24 HR) 30 MG TAB.ER.24H PO SCH (09:17)
[2019-11-27] MEDS: Loratadine 10 MG TABLET PO SCH (09:17)
[2019-11-27] MEDS: Fenofibrate 54 MG TABLET PO SCH (09:18)
[2019-11-27] MEDS: lamoTRIgine 100 MG TABLET PO SCH (09:18)
[2019-11-27] MEDS: FLUoxetine 20 MG CAPSULE PO SCH (09:18)
[2019-11-27] MEDS: Aspirin Enteric Coated 81 MG Tablet PO SCH (09:18)
[2019-11-27] MEDS: Acetaminophen 325 MG TABLET PO PRN (10:11)
[2019-11-27] MEDS: Chlorhexidine Rinse 15 ML MOUTHWASH MM SCH (19:55)
[2019-11-28] MEDS: *HR* Heparin 5,000 UNIT/ML VIAL SQ SCH (03:29)
[2019-11-28] MEDS: Chlorhexidine Rinse 15 ML MOUTHWASH MM SCH ×2 (05:40→20:26)
[2019-11-28] MEDS ORDERED: Chlorhexidine Rinse 15 ML MOUTHWASH MM SCH (05:45)
[2019-11-28] MEDS ORDERED: Clindamycin 900 MG/50 ML 900 MG/50 ML IV.SOLN IVPB ONE (06:00)
[2019-11-28] MEDS: atenoloL 25 MG TABLET PO SCH (06:23)
[2019-11-28] MEDS ORDERED: NiCARdipine 2.5 MG/10 ML Syringe IVPB ONE (06:44)
[2019-11-28] MEDS ORDERED: *HR* Midazolam HCl 5 MG/5 ML VIAL IVP ONE (06:52)
[2019-11-28] MEDS ORDERED: *HR* PHENYLEPHRINE 1,000 MCG/10 ML SYRINGE IVP ONE (06:52)
[2019-11-28] MEDS ORDERED: *HR* FentaNYL (PF) 1,000 MCG/20 ML VIAL ONE (06:52)
[2019-11-28] MEDS ORDERED: *HR* Rocuronium Bromide 50 MG/5 ML VIAL ONE ×2 (06:52→10:24)
[2019-11-28] MEDS ORDERED: Famotidine 20 MG/2 ML VIAL ONE (06:56)
[2019-11-28] MEDS ORDERED: *HR* Etomidate 20 MG/10 ML AMPUL IVP ONE (06:56)
[2019-11-28] MEDS ORDERED: Protamine Sulfate 250 MG/25 ML VIAL IVP ONE (06:59)
[2019-11-28] MEDS ORDERED: Tranexamic Acid 1,000 MG/10 ML VIAL ONE ×2 (06:59→09:04)
[2019-11-28] MEDS ORDERED: Calcium Gluconate 1,000 MG/10 ML VIAL ONE (06:59)
[2019-11-28] MEDS ORDERED: Dextrose 50 % in Water (Vial) 30 ML, Sodium Bicarbonate 20 MEQ, Lidocaine 1% 5 ML, Insu... TH ONE ×3 (07:45)
[2019-11-28] MEDS ORDERED: Dextrose 50 % in Water (Vial) 30 ML, Sodium Bicarbonate 20 MEQ, Potassium Chloride 15 M... TH ONE (07:45)
[2019-11-28] MEDS ORDERED: Heparin 15,000 UNIT in 0.9 % Sodium Chloride 500 ML IV ONE (07:45)
[2019-11-28] MEDS ORDERED: Norepinephrine 4 MG in 0.9 % Sodium Chloride 250 ML IVC PRN (07:45)
[2019-11-28] MEDS ORDERED: Insulin Human Regular 100 UNIT in 0.9 % Sodium Chloride 100 ML IV PRN (07:45)
[2019-11-28 07:59] LABS: ABG Base Excess 1 mEq/L (-2 to 3); ABG Chloride 101 mEq/L (98-107); ABG Glucose 120 mg/dL (60-95); ABG HCO3 27 mEq/L (21-27); ABG Ionized Calcium 1.23 mmol/L (1.15-1.35); ABG Oxygen Saturation 100 % (95-98); ABG PCO2 48 mmHg (35-45); ABG PH 7.36 pH Units (7.32-7.45); ABG PO2 278 mmHg (85-104); ABG TCO2 28 mEq/L (20-26)
[2019-11-28 09:30] LABS: ABG Base Excess -3 mEq/L (-2 to 3); ABG Chloride 107 mEq/L (98-107); ABG Glucose 155 mg/dL (60-95); ABG HCO3 24 mEq/L (21-27); ABG Ionized Calcium 0.95 mmol/L (1.15-1.35); ABG Oxygen Saturation 99 % (95-98); ABG PCO2 51 mmHg (35-45); ABG PH 7.28 pH Units (7.32-7.45); ABG PO2 166 mmHg (85-104); ABG TCO2 26 mEq/L (20-26)
[2019-11-28 10:10] LABS: ABG Base Excess 1 mEq/L (-2 to 3); ABG Chloride 97 mEq/L (98-107); ABG Glucose 208 mg/dL (60-95); ABG HCO3 27 mEq/L (21-27); ABG Ionized Calcium 1.03 mmol/L (1.15-1.35); ABG PCO2 43 mmHg (35-45); ABG PO2 > 630 mmHg (85-104); ABG TCO2 28 mEq/L (20-26)
[2019-11-28] MEDS ORDERED: Tranexamic Acid 1,000 MG/10 ML VIAL IVP ONE (10:46)
[2019-11-28] MEDS ORDERED: Mannitol 25% vial 12.5 GM/50 ML VIAL IVP ONE (10:46)
[2019-11-28] MEDS ORDERED: Heparin 1,000 UNITS/500 mL IV.SOLN IVC ONE (10:46)
[2019-11-28] MEDS ORDERED: *HR* Magnesium Sulfate 2 GM/50 ML PIGGYBACK IVPB ONE (10:46)
[2019-11-28] MEDS ORDERED: D5% in Water 250 ML IV BAG IV ONE (10:46)
[2019-11-28] MEDS ORDERED: Albumin Human 25% 25 GM/100 ML IV.SOLN IV ONE (10:46)
[2019-11-28] MEDS ORDERED: Lidocaine 2% Syringe 100 MG/5 ML IV ONE (10:46)
[2019-11-28] MEDS ORDERED: *HR* Phenylephrine 10 MG/ML VIAL IVC ONE (10:46)
[2019-11-28] MEDS ORDERED: *HR* Heparin 10,000 UNIT/10 ML VIAL IV ONE (10:46)
[2019-11-28 11:02] LABS: ABG Base Excess 1 mEq/L (-2 to 3); ABG Chloride 97 mEq/L (98-107); ABG Glucose 176 mg/dL (60-95); ABG HCO3 25 mEq/L (21-27); ABG Ionized Calcium 1.05 mmol/L (1.15-1.35); ABG Oxygen Saturation 100 % (95-98); ABG PCO2 41 mmHg (35-45); ABG PO2 575 mmHg (85-104); ABG TCO2 27 mEq/L (20-26)
[2019-11-28 11:18] LABS: ABG Base Excess 1 mEq/L (-2 to 3); ABG Chloride 98 mEq/L (98-107); ABG Glucose 136 mg/dL (60-95); ABG HCO3 26 mEq/L (21-27); ABG Ionized Calcium 1.08 mmol/L (1.15-1.35); ABG Oxygen Saturation 100 % (95-98); ABG PCO2 44 mmHg (35-45); ABG PH 7.38 pH Units (7.32-7.45); ABG PO2 552 mmHg (85-104); ABG TCO2 28 mEq/L (20-26)
[2019-11-28] MEDS ORDERED: Albumin Human 5% 12.5 GM/250 ML IV.SOLN ONE (11:40)
[2019-11-28 11:52] LABS: ABG Base Excess -4 mEq/L (-2 to 3); ABG Chloride 101 mEq/L (98-107); ABG Glucose 118 mg/dL (60-95); ABG HCO3 23 mEq/L (21-27); ABG Ionized Calcium 1.35 mmol/L (1.15-1.35); ABG Oxygen Saturation 97 % (95-98); ABG PCO2 51 mmHg (35-45); ABG PH 7.26 pH Units (7.32-7.45); ABG PO2 109 mmHg (85-104); ABG TCO2 25 mEq/L (20-26)
[2019-11-28] MEDS: Loratadine 10 MG TABLET PO SCH (11:53)
[2019-11-28] MEDS: Aspirin Enteric Coated 81 MG Tablet PO SCH (11:53)
[2019-11-28] MEDS: Isosorbide MONOnitrate (24 HR) 30 MG TAB.ER.24H PO SCH (11:53)
[2019-11-28] MEDS: Insulin LISPRO 300 UNITS/3 ML VIAL SQ SCH (11:53)
[2019-11-28] MEDS: FLUoxetine 20 MG CAPSULE PO SCH (11:54)
[2019-11-28] MEDS: lamoTRIgine 100 MG TABLET PO SCH (11:54)
[2019-11-28] MEDS: (Pravastatin Sodium 10 MG) PO SCH (11:54)
[2019-11-28] MEDS: Cholecalciferol (D-3) 1,000 UNIT (25MCG) TABLET PO SCH (11:55)
[2019-11-28] MEDS: Fenofibrate 54 MG TABLET PO SCH (11:55)
[2019-11-28] MEDS ORDERED: Potassium Chloride 40 MEQ/200 ML BAG IVPB PRN (11:59)
[2019-11-28] MEDS ORDERED: *HR* Dextrose 50 % in Water (Syg) 50 ML SYRINGE IVP PRN (11:59)
[2019-11-28] MEDS ORDERED: Insulin Regular, Human 100 UNIT/ML IV PRN (11:59)
[2019-11-28] MEDS ORDERED: Insulin Human Regular 100 UNIT in 0.9 % Sodium Chloride 100 ML IVC SCH (12:00)
[2019-11-28] MEDS ORDERED: niCARdipine 40 MG/200 ML MLS IVC ONE (12:00)
[2019-11-28] MEDS ORDERED: Ondansetron 4 MG/2 ML VIAL IVP PRN (12:01)
[2019-11-28] MEDS ORDERED: Acetaminophen 650 MG RECTAL SUPP RC PRN (12:01)
[2019-11-28] MEDS ORDERED: Albumin Human 5% 12.5 GM/250 ML IV.SOLN IVPB PRN (12:04)
[2019-11-28] MEDS ORDERED: Norepinephrine 4 MG in 0.9 % Sodium Chloride 250 ML IVC SCH (12:15)
[2019-11-28] MEDS: niCARdipine 20 MG/200 ML MLS IVC SCH ×3 (12:35→20:27)
[2019-11-28 13:00] LABS: ABG Base Excess 0 mEq/L (-2 to 3); ABG HCO3 26 mEq/L (21-27); ABG Oxygen Saturation 99 % (95-98); ABG PCO2 47 mmHg (35-45); ABG PH 7.36 pH Units (7.32-7.45); ABG PO2 168 mmHg (85-104); ABG TCO2 28 mEq/L (20-26); Blood Gas Modality ASSIST CONTROL; Blood Gas VT 500 cc
[2019-11-28 13:08] LABS: Hematocrit 33.8 % (35.3-44.9); Mean Corpuscular Hemoglobin 30.3 pg (28.0-33.3); Mean Corpuscular Volume 94.9 fL (83.0-100.0); Mean Platelet Volume 10.9 fL (9.4-12.4); Platelet Count 162 K/mcL (140-400); Red Blood Count 3.56 M/mcL (3.82-4.97)
[2019-11-28 13:09] LABS: Hemoglobin 10.8 g/dL (11.5-15.4)
[2019-11-28 13:12] LABS: White Blood Count 31.4 K/mcL (4.3-11.1)
[2019-11-28 13:16] LABS: INR 1.3
[2019-11-28 13:18] LABS: Activated Partial Thrombo Time 28.4 Seconds (26.0-36.0)
[2019-11-28 13:19] LABS: Prothrombin Time 14.7 Seconds (9.4-12.1)
[2019-11-28 13:25] LABS: BUN/Creatinine Ratio 29 (6-26); Blood Urea Nitrogen 24 mg/dL (8-23); Calcium 9.1 mg/dL (8.6-10.3); Carbon Dioxide 26 mEq/L (23-29); Chloride 104 mEq/L (98-107); Glucose 114 mg/dL (70-105); Magnesium 2.3 mg/dL (1.6-2.6); Osmolality,Calculated 289 (280-300); Potassium 4.3 mEq/L (3.5-5.1); Sodium 137 mEq/L (136-145); eGFR For African Americans > 60 (> 60); eGFR For Non-African Americans > 60 (> 60)
[2019-11-28 13:30] LABS: Lymphocytes # 2.5 K/mcL (0.6-4.6); Monocytes # 4.4 K/mcL (0.0-1.3); Neutrophils # 24.5 K/mcL (1.6-8.9)
[2019-11-28 13:31] LABS: Platelet Estimate Normal (Normal)
[2019-11-28] MEDS: Pantoprazole 40 MG VIAL IVP SCH (14:07)
[2019-11-28] MEDS: 0.9 % Sodium Chloride w KCl 20 MEQ/1,000 ML MLS IVC SCH (14:17)
[2019-11-28] MEDS: *HR* FentaNYL (PF) 100 MCG/2 ML VIAL IVP PRN ×6 (14:38→23:04)
[2019-11-28] MEDS: *HR* OxyCODONE/APAP 5/325 TABLET PO PRN ×3 (14:39→23:25)
[2019-11-28] MEDS ORDERED: 0.9 % Sodium Chloride 500 ML ONE (15:17)
[2019-11-28 15:55] LABS: ABG Base Excess 1 mEq/L (-2 to 3); ABG HCO3 26 mEq/L (21-27); ABG Oxygen Saturation 99 % (95-98); ABG PCO2 43 mmHg (35-45); ABG PH 7.39 pH Units (7.32-7.45); ABG PO2 127 mmHg (85-104); ABG TCO2 27 mEq/L (20-26); Blood Gas Modality ASSIST CONTROL; Blood Gas Pressure Support 8 cm H2O
[2019-11-28] MEDS: Clindamycin 900 MG/50 ML 900 MG/50 ML IV.SOLN IVPB SCH ×2 (16:01→23:13)
[2019-11-28 16:43] LABS: Hematocrit 31.2 % (35.3-44.9); Hemoglobin 10.3 g/dL (11.5-15.4); Mean Corpuscular Hemoglobin 31.3 pg (28.0-33.3); Mean Corpuscular Volume 94.8 fL (83.0-100.0); Mean Platelet Volume 11.1 fL (9.4-12.4); Platelet Count 151 K/mcL (140-400); Red Blood Count 3.29 M/mcL (3.82-4.97); Red Cell Distribution Width 13.2 % (11.5-14.5)
[2019-11-28 16:45] LABS: White Blood Count 30.2 K/mcL (4.3-11.1)
[2019-11-28] MEDS: Metoclopramide 10 MG/2 ML VIAL IVP SCH ×2 (18:07→23:04)
[2019-11-28] MEDS: Furosemide 20 MG/2 ML VIAL IVP SCH (20:25)
[2019-11-29] MEDS: niCARdipine 20 MG/200 ML MLS IVC SCH ×3 (00:14→08:37)
[2019-11-29] MEDS: *HR* FentaNYL (PF) 100 MCG/2 ML VIAL IVP PRN ×7 (00:18→20:59)
[2019-11-29 04:19] LABS: Basophils % 0.1 %; Hemoglobin 9.8 g/dL (11.5-15.4); Immature Granulocytes % 0.5 % (0-4); Lymphocytes # 1.1 K/mcL (0.6-4.6); Lymphocytes % 7.1 %; Mean Corpuscular HGB Conc 32.7 g/dL (31.6-35.5); Mean Corpuscular Hemoglobin 31.3 pg (28.0-33.3); Mean Corpuscular Volume 95.8 fL (83.0-100.0); Monocytes # 2.3 K/mcL (0.0-1.3); Monocytes % 15.3 %; Neutrophils # 11.5 K/mcL (1.6-8.9); Platelet Count 152 K/mcL (140-400); Red Blood Count 3.13 M/mcL (3.82-4.97); Red Cell Distribution Width 13.5 % (11.5-14.5); White Blood Count 14.9 K/mcL (4.3-11.1)
[2019-11-29 04:27] LABS: INR 1.1; Prothrombin Time 12.5 Seconds (9.4-12.1)
[2019-11-29 04:30] LABS: Activated Partial Thrombo Time 25.9 Seconds (26.0-36.0)
[2019-11-29 04:41] LABS: BUN/Creatinine Ratio 25 (6-26); Blood Urea Nitrogen 24 mg/dL (8-23); Calcium 8.8 mg/dL (8.6-10.3); Carbon Dioxide 25 mEq/L (23-29); Chloride 105 mEq/L (98-107); Glucose 118 mg/dL (70-105); Magnesium 2.2 mg/dL (1.6-2.6); Osmolality,Calculated 289 (280-300); Potassium 4.3 mEq/L (3.5-5.1); Sodium 137 mEq/L (136-145); eGFR For African Americans > 60 (> 60); eGFR For Non-African Americans 57 (> 60)
[2019-11-29] MEDS: Metoclopramide 10 MG/2 ML VIAL IVP SCH ×4 (05:19→23:07)
[2019-11-29] MEDS: *HR* OxyCODONE/APAP 5/325 TABLET PO PRN ×5 (05:19→22:38)
[2019-11-29] MEDS: Furosemide 20 MG/2 ML VIAL IVP SCH ×2 (07:51→20:56)
[2019-11-29] MEDS: Pantoprazole 40 MG VIAL IVP SCH (07:57)
[2019-11-29] MEDS: FLUoxetine 20 MG CAPSULE PO SCH (07:57)
[2019-11-29] MEDS: Chlorhexidine Rinse 15 ML MOUTHWASH MM SCH ×2 (07:57→20:34)
[2019-11-29] MEDS ORDERED: Aspirin Enteric Coated 81 MG Tablet PO SCH (09:00)
[2019-11-29] MEDS: Loratadine 10 MG TABLET PO SCH (09:42)
[2019-11-29] MEDS: Fenofibrate 54 MG TABLET PO SCH (09:43)
[2019-11-29] MEDS: Cholecalciferol (D-3) 1,000 UNIT (25MCG) TABLET PO SCH (09:43)
[2019-11-29] MEDS: (Pravastatin Sodium 10 MG) PO SCH (09:43)
[2019-11-29] MEDS: lamoTRIgine 100 MG TABLET PO SCH (09:43)
[2019-11-29] MEDS ORDERED: Dextrose Gel 15 GM/37.5 ML TUBE PO PRN ×6 (10:06→16:58)
[2019-11-29] MEDS ORDERED: Insulin Human Regular 100 UNIT in 0.9 % Sodium Chloride 100 ML IVC SCH (10:06)
[2019-11-29] MEDS ORDERED: D5% in Water 1,000 ML IVC PRN ×2 (10:06→20:00)
[2019-11-29] MEDS ORDERED: Ondansetron 4 MG/2 ML VIAL IVP PRN (10:06)
[2019-11-29] MEDS ORDERED: *HR* Dextrose 50 % in Water (Syg) 50 ML SYRINGE IVP PRN ×4 (10:06→16:58)
[2019-11-29] MEDS ORDERED: Nitroglycerin 0.4 MG TAB.SUBL SL PRN (10:06)
[2019-11-29] MEDS ORDERED: Acetaminophen 325 MG TABLET PO PRN (10:06)
[2019-11-29] MEDS ORDERED: Insulin Regular, Human 100 UNIT/ML IV PRN (10:06)
[2019-11-29] MEDS ORDERED: Naloxone 0.4 MG/ML INJ IVP PRN (10:06)
[2019-11-29] MEDS ORDERED: Simethicone 80 MG TAB.CHEW PO PRN (10:06)
[2019-11-29] MEDS: Insulin LISPRO 300 UNITS/3 ML VIAL SQ SCH ×3 (11:41→20:41)
[2019-11-29] MEDS: *HR* Heparin 5,000 UNIT/ML VIAL SQ SCH ×2 (11:49→17:44)
[2019-11-30] MEDS: *HR* FentaNYL (PF) 100 MCG/2 ML VIAL IVP PRN ×3 (02:06→07:23)
[2019-11-30] MEDS: *HR* Heparin 5,000 UNIT/ML VIAL SQ SCH ×2 (05:38→17:53)
[2019-11-30] MEDS: Metoclopramide 10 MG/2 ML VIAL IVP SCH ×4 (05:40→23:36)
[2019-11-30 05:46] LABS: Basophils % 0.2 %; Eosinophils % 0.1 %; Hematocrit 27.7 % (35.3-44.9); Hemoglobin 8.9 g/dL (11.5-15.4); Immature Granulocytes % 0.6 % (0-4); Lymphocytes # 1.3 K/mcL (0.6-4.6); Lymphocytes % 8.6 %; Mean Corpuscular HGB Conc 32.1 g/dL (31.6-35.5); Mean Corpuscular Volume 96.5 fL (83.0-100.0); Mean Platelet Volume 11.7 fL (9.4-12.4); Monocytes # 2.4 K/mcL (0.0-1.3); Monocytes % 16.3 %; Neutrophils # 10.8 K/mcL (1.6-8.9); Platelet Count 135 K/mcL (140-400); Red Blood Count 2.87 M/mcL (3.82-4.97); Red Cell Distribution Width 13.5 % (11.5-14.5); Segmented Neutrophils % 74.2 %; White Blood Count 14.6 K/mcL (4.3-11.1)
[2019-11-30 06:28] LABS: BUN/Creatinine Ratio 28 (6-26); Blood Urea Nitrogen 25 mg/dL (8-23); Carbon Dioxide 25 mEq/L (23-29); Chloride 102 mEq/L (98-107); Glucose 176 mg/dL (70-105); Osmolality,Calculated 285 (280-300); Sodium 133 mEq/L (136-145); eGFR For African Americans > 60 (> 60); eGFR For Non-African Americans > 60 (> 60)
[2019-11-30] MEDS ORDERED: Amiodarone Premix 360 MG/200 ML BAG IVC ONE ×2 (06:52→06:56)
[2019-11-30] MEDS ORDERED: Amiodarone Premix 150 MG/100 ML BAG IVPB ONE ×2 (06:52→06:55)
[2019-11-30] MEDS: Furosemide 20 MG/2 ML VIAL IVP SCH ×2 (08:48→20:30)
[2019-11-30] MEDS: Chlorhexidine Rinse 15 ML MOUTHWASH MM SCH ×2 (08:48→20:29)
[2019-11-30] MEDS: Fenofibrate 54 MG TABLET PO SCH (08:48)
[2019-11-30] MEDS: Pantoprazole 40 MG VIAL IVP SCH (08:48)
[2019-11-30] MEDS: Aspirin Enteric Coated 81 MG Tablet PO SCH (08:49)
[2019-11-30] MEDS: Loratadine 10 MG TABLET PO SCH (08:49)
[2019-11-30] MEDS: *HR* OxyCODONE/APAP 5/325 TABLET PO PRN (08:49)
[2019-11-30] MEDS: lamoTRIgine 100 MG TABLET PO SCH (08:49)
[2019-11-30] MEDS: Cholecalciferol (D-3) 1,000 UNIT (25MCG) TABLET PO SCH (08:50)
[2019-11-30] MEDS: Insulin LISPRO 300 UNITS/3 ML VIAL SQ SCH ×4 (08:54→20:30)
[2019-11-30] MEDS ORDERED: (Pravastatin Sodium 10 MG) PO SCH (09:00)
[2019-11-30] MEDS: FLUoxetine 20 MG CAPSULE PO SCH (09:05)
[2019-11-30] MEDS: Ketorolac 15 MG/ML VIAL IVP SCH ×3 (12:03→23:35)
[2019-11-30] MEDS: Amiodarone Premix 360 MG/200 ML BAG IVC SCH ×2 (13:28→23:35)
[2019-11-30] MEDS ORDERED: atenoloL 25 MG TABLET PO SCH (14:45)
[2019-11-30] MEDS: Patient Taking Own Medication 1 EACH PO SCH (20:31)
[2019-12-01 04:41] LABS: Basophils % 0.2 %; Eosinophils % 0.1 %; Hematocrit 24.4 % (35.3-44.9); Immature Granulocytes % 0.7 % (0-4); Lymphocytes # 0.8 K/mcL (0.6-4.6); Mean Corpuscular HGB Conc 32.8 g/dL (31.6-35.5); Mean Corpuscular Hemoglobin 31.6 pg (28.0-33.3); Mean Corpuscular Volume 96.4 fL (83.0-100.0); Mean Platelet Volume 11.6 fL (9.4-12.4); Monocytes # 0.8 K/mcL (0.0-1.3); Monocytes % 6.5 %; Neutrophils # 10.1 K/mcL (1.6-8.9); Nucleated Red Blood Cells 0.2 /100 WBC (0); Platelet Count 111 K/mcL (140-400); Red Blood Count 2.53 M/mcL (3.82-4.97); Red Cell Distribution Width 13.4 % (11.5-14.5); Segmented Neutrophils % 85.5 %; White Blood Count 11.8 K/mcL (4.3-11.1)
[2019-12-01] MEDS: atenoloL 50 MG TABLET PO SCH (04:58)
[2019-12-01 04:59] LABS: BUN/Creatinine Ratio 28 (6-26); Blood Urea Nitrogen 29 mg/dL (8-23); Carbon Dioxide 24 mEq/L (23-29); Chloride 99 mEq/L (98-107); Glucose 163 mg/dL (70-105); Osmolality,Calculated 281 (280-300); Potassium 3.5 mEq/L (3.5-5.1); Sodium 131 mEq/L (136-145); eGFR For African Americans > 60 (> 60); eGFR For Non-African Americans 52 (> 60)
[2019-12-01] MEDS: *HR* Heparin 5,000 UNIT/ML VIAL SQ SCH ×2 (06:36→18:04)
[2019-12-01] MEDS: Ketorolac 15 MG/ML VIAL IVP SCH ×4 (06:36→23:39)
[2019-12-01] MEDS: Metoclopramide 10 MG/2 ML VIAL IVP SCH ×3 (06:36→18:04)
[2019-12-01] MEDS: Insulin LISPRO 300 UNITS/3 ML VIAL SQ SCH ×4 (08:18→20:08)
[2019-12-01] MEDS: Fenofibrate 54 MG TABLET PO SCH (08:19)
[2019-12-01] MEDS: Loratadine 10 MG TABLET PO SCH (08:19)
[2019-12-01] MEDS: Aspirin Enteric Coated 81 MG Tablet PO SCH (08:19)
[2019-12-01] MEDS: lamoTRIgine 100 MG TABLET PO SCH (08:20)
[2019-12-01] MEDS: FLUoxetine 20 MG CAPSULE PO SCH (08:21)
[2019-12-01] MEDS: Cholecalciferol (D-3) 1,000 UNIT (25MCG) TABLET PO SCH (08:21)
[2019-12-01] MEDS: Chlorhexidine Rinse 15 ML MOUTHWASH MM SCH ×2 (08:22→20:08)
[2019-12-01] MEDS: Pantoprazole 40 MG VIAL IVP SCH (08:22)
[2019-12-01] MEDS: Amiodarone Premix 360 MG/200 ML BAG IVC SCH ×2 (11:58→23:40)
[2019-12-01] MEDS: Patient Taking Own Medication 1 EACH PO SCH (20:09)
[2019-12-02] MEDS: Ketorolac 15 MG/ML VIAL IVP SCH ×3 (05:28→17:56)
[2019-12-02] MEDS: *HR* Heparin 5,000 UNIT/ML VIAL SQ SCH ×2 (05:28→17:55)
[2019-12-02 05:53] LABS: Basophils % 0.1 %; Eosinophils # 0.1 K/mcL (0.0-0.6); Hematocrit 23.1 % (35.3-44.9); Hemoglobin 7.5 g/dL (11.5-15.4); Immature Granulocytes % 0.9 % (0-4); Lymphocytes # 0.8 K/mcL (0.6-4.6); Lymphocytes % 6.1 %; Mean Corpuscular HGB Conc 32.5 g/dL (31.6-35.5); Mean Corpuscular Hemoglobin 31.5 pg (28.0-33.3); Mean Corpuscular Volume 97.1 fL (83.0-100.0); Monocytes # 1.6 K/mcL (0.0-1.3); Monocytes % 12.1 %; Neutrophils # 10.8 K/mcL (1.6-8.9); Platelet Count 124 K/mcL (140-400); Red Blood Count 2.38 M/mcL (3.82-4.97); Red Cell Distribution Width 13.7 % (11.5-14.5); Segmented Neutrophils % 79.8 %; White Blood Count 13.6 K/mcL (4.3-11.1)
[2019-12-02 06:10] LABS: Potassium 3.4 mEq/L (3.5-5.1)
[2019-12-02] MEDS: Chlorhexidine Rinse 15 ML MOUTHWASH MM SCH ×2 (07:23→20:12)
[2019-12-02] MEDS: lamoTRIgine 100 MG TABLET PO SCH (07:24)
[2019-12-02] MEDS: FLUoxetine 20 MG CAPSULE PO SCH (07:24)
[2019-12-02] MEDS: Fenofibrate 54 MG TABLET PO SCH (07:24)
[2019-12-02] MEDS: Pantoprazole 40 MG VIAL IVP SCH (07:24)
[2019-12-02] MEDS: Aspirin Enteric Coated 81 MG Tablet PO SCH (07:25)
[2019-12-02] MEDS: Loratadine 10 MG TABLET PO SCH (07:25)
[2019-12-02] MEDS: Cholecalciferol (D-3) 1,000 UNIT (25MCG) TABLET PO SCH (07:26)
[2019-12-02] MEDS: Insulin LISPRO 300 UNITS/3 ML VIAL SQ SCH ×4 (07:26→20:15)
[2019-12-02] MEDS: *HR* Amiodarone 200 MG TABLET PO SCH ×2 (09:31→20:12)
[2019-12-02] MEDS: atenoloL 50 MG TABLET PO SCH (09:32)
[2019-12-02] MEDS: 0.9 % Sodium Chloride w KCl 20 MEQ/1,000 ML MLS IVC SCH (19:28)
[2019-12-02] MEDS: Patient Taking Own Medication 1 EACH PO SCH (20:12)
[2019-12-03] MEDS: Ketorolac 15 MG/ML VIAL IVP SCH ×2 (00:18→06:10)
[2019-12-03 00:39] LABS: Basophils % 0.1 %; Eosinophils % 0.4 %; Hemoglobin 7.4 g/dL (11.5-15.4); Immature Granulocytes % 1.6 % (0-4); Lymphocytes # 0.7 K/mcL (0.6-4.6); Lymphocytes % 6.7 %; Mean Corpuscular HGB Conc 32.2 g/dL (31.6-35.5); Mean Corpuscular Hemoglobin 30.7 pg (28.0-33.3); Mean Corpuscular Volume 95.4 fL (83.0-100.0); Monocytes # 1.3 K/mcL (0.0-1.3); Monocytes % 12.5 %; Nucleated Red Blood Cells 0.3 /100 WBC (0); Platelet Count 150 K/mcL (140-400); Red Blood Count 2.41 M/mcL (3.82-4.97); Red Cell Distribution Width 13.4 % (11.5-14.5); Segmented Neutrophils % 78.7 %; White Blood Count 10.2 K/mcL (4.3-11.1)
[2019-12-03 00:58] LABS: BUN/Creatinine Ratio 35 (6-26); Blood Urea Nitrogen 39 mg/dL (8-23); Calcium 8.9 mg/dL (8.6-10.3); Carbon Dioxide 25 mEq/L (23-29); Chloride 97 mEq/L (98-107); Glucose 134 mg/dL (70-105); Osmolality,Calculated 283 (280-300); Potassium 3.7 mEq/L (3.5-5.1); Sodium 131 mEq/L (136-145); eGFR For African Americans > 60 (> 60); eGFR For Non-African Americans 50 (> 60)
[2019-12-03 01:25] LABS: Platelet Estimate Normal (Normal)
[2019-12-03] MEDS ORDERED: *HR* Amiodarone 200 MG TABLET PO ONE (02:38)
[2019-12-03] MEDS: *HR* Heparin 5,000 UNIT/ML VIAL SQ SCH (06:10)
[2019-12-03] MEDS: Fenofibrate 54 MG TABLET PO SCH (08:09)
[2019-12-03] MEDS: lamoTRIgine 100 MG TABLET PO SCH (08:09)
[2019-12-03] MEDS: Cholecalciferol (D-3) 1,000 UNIT (25MCG) TABLET PO SCH (08:09)
[2019-12-03] MEDS: Aspirin Enteric Coated 81 MG Tablet PO SCH (08:09)
[2019-12-03] MEDS: atenoloL 50 MG TABLET PO SCH (08:09)
[2019-12-03] MEDS: FLUoxetine 20 MG CAPSULE PO SCH (08:09)
[2019-12-03] MEDS: Loratadine 10 MG TABLET PO SCH (08:10)
[2019-12-03] MEDS: Chlorhexidine Rinse 15 ML MOUTHWASH MM SCH (08:10)
[2019-12-03] MEDS: *HR* Amiodarone 200 MG TABLET PO SCH (08:10)
[2019-12-03] MEDS: Insulin LISPRO 300 UNITS/3 ML VIAL SQ SCH (08:12)
[2019-12-03 09:33] VITALS: BP 95/70
== END 2019-12-03 11:35 | disposition home or self-care (01) | DRG 234 ==
LOC: EMEROOARM 08:44 → 3BNU 08:44 → SUATTDRO 11-20 10:52 → ICNU 11-28 07:48
PROVIDERS: ADMIT Internal Medicine; ATTEND Internal Medicine

== ENCOUNTER 2019-12-06 07:58 | Inpatient (IN) ==
[2019-12-06] MEDS ORDERED: Isovue-370 500 ML BOTTLE IVP ONE (08:03)
[2019-12-06] MEDS ORDERED: *HR* HYDROmorphone (PF) 1 MG/ML SYRINGE IVP ONE (08:05)
[2019-12-06] MEDS ORDERED: Norepinephrine 4 MG/254 ML IV.SOLN IVC SCH (08:15)
[2019-12-06] MEDS ORDERED: Vancomycin 2,000 MG/520 ML IV.SOLN IVPB ONE (08:24)
[2019-12-06] MEDS ORDERED: Cefepime HCl 2,000 MG in Water for inj. (sterile) 20 ML IVP STA (08:24)
[2019-12-06 08:39] LABS: Basophils % 0.1 %; Eosinophils # 0.1 K/mcL (0.0-0.6); Eosinophils % 0.4 %; Hematocrit 22.4 % (35.3-44.9); Hemoglobin 7.2 g/dL (11.5-15.4); Immature Granulocytes % 3.6 % (0-4); Lymphocytes % 5.1 %; Mean Corpuscular HGB Conc 32.1 g/dL (31.6-35.5); Mean Corpuscular Volume 93.3 fL (83.0-100.0); Mean Platelet Volume 12.2 fL (9.4-12.4); Monocytes # 1.7 K/mcL (0.0-1.3); Monocytes % 9.1 %; Neutrophils # 15.6 K/mcL (1.6-8.9); Nucleated Red Blood Cells 0.3 /100 WBC (0); Platelet Count 236 K/mcL (140-400); Segmented Neutrophils % 81.7 %
[2019-12-06 08:40] LABS: White Blood Count 19.1 K/mcL (4.3-11.1)
[2019-12-06 08:53] LABS: INR 1.2; Prothrombin Time 14.1 Seconds (9.4-12.1)
[2019-12-06 09:14] LABS: Calcium 9.1 mg/dL (8.6-10.3); Potassium 3.9 mEq/L (3.5-5.1); Troponin I 0.35 ng/mL (< 0.04)
[2019-12-06] MEDS ORDERED: Aminoglycoside Consult 1 EACH MC ONE (09:38)
[2019-12-06 09:40] LABS: Bilirubin,Urine Small (Negative); Blood,Urine Trace (Negative); Clarity,Urine Turbid (Clear); Color,Urine Dark Yellow (Yellow); Glucose,Urine (UA) Normal (Normal); Ketones,Urine Negative (Negative); Leukocyte Esterase,Urine Large (Negative); Nitrite,Urine Negative (Negative); PH,Urine 5.5 pH Units (5.0-8.0); Protein,Urine 30 mg/dL (Neg-Trace); Specific Gravity,Urine 1.022 (1.010-1.025); Urobilinogen,Urine Normal (Normal)
[2019-12-06 09:41] LABS: Albumin 3.1 g/dL (3.5-5.7); Albumin/Globulin Ratio 1.2 (1.1-2.2); Bilirubin,Direct 0.2 mg/dL (0.0-0.2); Bilirubin,Indirect 0.4 mg/dL (0.0-1.0); Bilirubin,Total 0.6 mg/dL (0.3-1.0); Globulin 2.6 g/dL (2.4-3.5); Thyroid Stimulating Hormone 13.304 mcIU/mL (0.340-5.600); Total Protein 5.7 g/dL (6.4-8.9)
[2019-12-06 09:43] LABS: Bacteria,Urine Many per hpf (None-Few); Hyaline Casts,Urine None Seen per lpf (None-Few); Squamous Epithelial Cell,Urine Many per lpf (None-Few); WBC,Urine TNTC per hpf (0-3)
[2019-12-06] MEDS ORDERED: Azithromycin 500 MG in 0.9 % Sodium Chloride 250 ML IVPB ONE (09:43)
[2019-12-06] MEDS ORDERED: *HR* Heparin 5,000 UNIT/ML VIAL IVP ONE (09:44)
[2019-12-06] MEDS ORDERED: *HR* Heparin 5,000 UNIT/ML VIAL IVP PRN ×2 (09:44)
[2019-12-06 10:02] LABS: ABG Base Excess -4 mEq/L (-2 to 3); ABG HCO3 21 mEq/L (21-27); ABG Oxygen Saturation 98 % (95-98); ABG PCO2 37 mmHg (35-45); ABG PH 7.36 pH Units (7.32-7.45); ABG PO2 105 mmHg (85-104); ABG TCO2 22 mEq/L (20-26)
[2019-12-06] MEDS ORDERED: 0.9 % Sodium Chloride 250 ML ONE (11:23)
[2019-12-06 11:28] LABS: Hematocrit 22.2 % (35.3-44.9); Hemoglobin 7.2 g/dL (11.5-15.4); Mean Corpuscular HGB Conc 32.4 g/dL (31.6-35.5); Mean Corpuscular Hemoglobin 30.9 pg (28.0-33.3); Mean Corpuscular Volume 95.3 fL (83.0-100.0); Platelet Count 267 K/mcL (140-400); Red Blood Count 2.33 M/mcL (3.82-4.97); Red Cell Distribution Width 14.4 % (11.5-14.5); White Blood Count 24.9 K/mcL (4.3-11.1)
[2019-12-06] MEDS: Heparin 25,000 UNIT/250 ML D5W 25,000 UNIT/250 ML IV.SOLN IVC SCH (11:51)
[2019-12-06] MEDS ORDERED: Acetaminophen 325 MG TABLET PO PRN (12:21)
[2019-12-06] MEDS ORDERED: Ondansetron 4 MG/2 ML VIAL IVP PRN (12:21)
[2019-12-06] MEDS ORDERED: Naloxone 0.4 MG/ML INJ IVP PRN (12:21)
[2019-12-06] MEDS ORDERED: Vancomycin (wt based) 1,000 MG VIAL IVPB SCH (13:00)
[2019-12-06 13:06] LABS: Hematocrit 23.7 % (35.3-44.9); Hemoglobin 7.5 g/dL (11.5-15.4)
[2019-12-06] MEDS ORDERED: Perflutren Lipid Microsphere 1.3 ML in 0.9 % Sodium Chloride 8.7 ML IVP ONE (15:33)
[2019-12-06] MEDS ORDERED: Ipratropium/Albuterol Neb 3 ML IH PRN (15:58)
[2019-12-06] MEDS ORDERED: Furosemide 40 MG/4 ML VIAL IVP ONE (16:58)
[2019-12-06 17:16] LABS: Hematocrit 26.6 % (35.3-44.9); Hemoglobin 8.6 g/dL (11.5-15.4)
[2019-12-06] MEDS ORDERED: Ondansetron 4 MG/2 ML VIAL IVP ONE (17:22)
[2019-12-06] MEDS: Norepinephrine 4 MG/254 ML IV.SOLN IVC SCH (17:24)
[2019-12-06] MEDS ORDERED: Furosemide 60 MG in 0.9 % Sodium Chloride 50 ML IVPB ONE (18:00)
[2019-12-06] MEDS ORDERED: Furosemide 40 MG/4 ML VIAL ONE (18:15)
[2019-12-06] MEDS ORDERED: DAPTOmycin 750 MG in 0.9 % Sodium Chloride 100 ML IVPB SCH (19:00)
[2019-12-06] MEDS: Cefepime HCl 1,000 MG in Water for inj. (sterile) 10 ML IVP SCH (19:49)
[2019-12-06] MEDS: *HR* HYDROcodone/Acet 5/325 mg TABLET PO PRN (19:50)
[2019-12-06] MEDS: *HR* Amiodarone 200 MG TABLET PO SCH (19:50)
[2019-12-06] MEDS: Doxycycline 100 MG CAPSULE PO SCH (19:50)
[2019-12-07] MEDS: Heparin 25,000 UNIT/250 ML D5W 25,000 UNIT/250 ML IV.SOLN IVC SCH (01:45)
[2019-12-07] MEDS: *HR* HYDROcodone/Acet 5/325 mg TABLET PO PRN (02:27)
[2019-12-07 02:40] LABS: Acinetobacter baumannii by PCR Not Detected (Not Detect); Enterococcus by PCR Not Detected (Not Detect); Staphylococcus aureus by PCR Not Detected (Not Detect); Staphylococcus by PCR Not Detected (Not Detect); Streptococcus agalactiae(B)PCR Not Detected (Not Detect); Streptococcus by PCR Not Detected (Not Detect); Streptococcus pneumoniae PCR Not Detected (Not Detect); Streptococcus pyogenes (A) PCR Not Detected (Not Detect); blaKPC Carbapenem-Resist Gene Not Detected (Not Detect)
[2019-12-07 02:41] LABS: Candida albicans by PCR Not Detected (Not Detect); Candida glabrata by PCR Not Detected (Not Detect); Candida krusei by PCR Not Detected (Not Detect); Candida parapsilosis by PCR Not Detected (Not Detect); Candida tropicalis by PCR Not Detected (Not Detect); Enterobacter cloacae Cmplx PCR Not Detected (Not Detect); Enterobacteriaceae by PCR Not Detected (Not Detect); Escherichia coli by PCR Not Detected (Not Detect); Klebsiella oxytoca by PCR Not Detected (Not Detect); Klebsiella pneumoniae by PCR Not Detected (Not Detect); Proteus by PCR Not Detected (Not Detect); Pseudomonas aeruginosa by PCR Not Detected (Not Detect); Serratia marcescens by PCR DETECTED (Not Detect)
[2019-12-07 05:19] LABS: Basophils # 0.1 K/mcL (0.0-0.2); Basophils % 0.3 %; Eosinophils % 0.2 %; Hemoglobin 8.5 g/dL (11.5-15.4); Immature Granulocytes % 4.2 % (0-4); Lymphocytes # 1.1 K/mcL (0.6-4.6); Lymphocytes % 5.5 %; Mean Corpuscular HGB Conc 32.7 g/dL (31.6-35.5); Mean Corpuscular Hemoglobin 29.8 pg (28.0-33.3); Mean Corpuscular Volume 91.2 fL (83.0-100.0); Mean Platelet Volume 11.9 fL (9.4-12.4); Monocytes # 1.5 K/mcL (0.0-1.3); Monocytes % 7.6 %; Neutrophils # 16.1 K/mcL (1.6-8.9); Nucleated Red Blood Cells 0.3 /100 WBC (0); Platelet Count 247 K/mcL (140-400); Red Blood Count 2.85 M/mcL (3.82-4.97); Red Cell Distribution Width 14.9 % (11.5-14.5); Segmented Neutrophils % 82.2 %; White Blood Count 19.6 K/mcL (4.3-11.1)
[2019-12-07 05:37] LABS: Calcium 8.5 mg/dL (8.6-10.3); Phosphorous 3.8 mg/dL (2.7-4.5); Potassium 3.5 mEq/L (3.5-5.1)
[2019-12-07 05:57] LABS: Platelet Estimate Normal (Normal)
[2019-12-07] MEDS: Cefepime HCl 1,000 MG in Water for inj. (sterile) 10 ML IVP SCH (07:41)
[2019-12-07] MEDS: Doxycycline 100 MG CAPSULE PO SCH ×2 (07:41→20:09)
[2019-12-07] MEDS: *HR* Amiodarone 200 MG TABLET PO SCH (07:41)
[2019-12-07] MEDS ORDERED: Furosemide 20 MG/2 ML VIAL IVP ONE (07:55)
[2019-12-07] MEDS ORDERED: Cefepime HCl 1,000 MG in Water for inj. (sterile) 10 ML IVP ONE (08:14)
[2019-12-07] MEDS ORDERED: Ertapenem 1,000 MG in 0.9 % Sodium Chloride Mini Bag 100 ML IVPB SCH (09:00)
[2019-12-07] MEDS ORDERED: Pantoprazole 40 MG VIAL IVP SCH (09:00)
[2019-12-07] MEDS ORDERED: D5% in Water 1,000 ML IVC PRN ×2 (09:36→14:34)
[2019-12-07] MEDS ORDERED: Dextrose Gel 15 GM/37.5 ML TUBE PO PRN ×4 (09:36→14:34)
[2019-12-07] MEDS ORDERED: *HR* Dextrose 50 % in Water (Syg) 50 ML SYRINGE IVP PRN ×2 (09:36→14:34)
[2019-12-07] MEDS ORDERED: *HR* Rocuronium Bromide 50 MG/5 ML VIAL ONE (10:46)
[2019-12-07] MEDS ORDERED: *HR* PHENYLEPHRINE 1,000 MCG/10 ML SYRINGE IVP ONE (10:46)
[2019-12-07] MEDS ORDERED: Dexamethasone 4 MG/ML VIAL ONE (10:46)
[2019-12-07] MEDS ORDERED: *HR* FentaNYL (PF) 250 MCG/5 ML VIAL ONE ×2 (10:46→12:40)
[2019-12-07] MEDS ORDERED: *HR* Midazolam HCl 5 MG/5 ML VIAL IVP ONE (10:46)
[2019-12-07] MEDS ORDERED: Famotidine 20 MG/2 ML VIAL ONE (10:46)
[2019-12-07] MEDS ORDERED: *HR* Propofol 200 MG/20 ML VIAL IVP ONE (10:47)
[2019-12-07] MEDS ORDERED: *HR* Succinylcholine 200 MG/10 ML VIAL IVP ONE (10:49)
[2019-12-07] MEDS ORDERED: Lidocaine 2% Syringe 100 MG/5 ML ONE (10:50)
[2019-12-07] MEDS ORDERED: Heparin 1,000 UNITS/500 mL 500 ML ONE (10:55)
[2019-12-07] MEDS ORDERED: Insulin LISPRO 300 UNITS/3 ML VIAL SQ SCH ×3 (11:30→21:00)
[2019-12-07 11:52] LABS: ABG Base Excess 1 mEq/L (-2 to 3); ABG Chloride 100 mEq/L (98-107); ABG Glucose 139 mg/dL (60-95); ABG HCO3 27 mEq/L (21-27); ABG Ionized Calcium 1.18 mmol/L (1.15-1.35); ABG Oxygen Saturation 100 % (95-98); ABG PCO2 49 mmHg (35-45); ABG PH 7.34 pH Units (7.32-7.45); ABG PO2 343 mmHg (85-104); ABG TCO2 28 mEq/L (20-26)
[2019-12-07] MEDS ORDERED: Acetaminophen IV 1,000 MG/100 ML INFUS..BTL ONE (12:18)
[2019-12-07] MEDS ORDERED: Ondansetron 4 MG/2 ML VIAL ONE (12:30)
[2019-12-07 12:57] LABS: ABG Base Excess 2 mEq/L (-2 to 3); ABG Chloride 101 mEq/L (98-107); ABG Glucose 73 mg/dL (60-95); ABG HCO3 28 mEq/L (21-27); ABG Ionized Calcium 1.22 mmol/L (1.15-1.35); ABG Oxygen Saturation 99 % (95-98); ABG PCO2 51 mmHg (35-45); ABG PH 7.36 pH Units (7.32-7.45); ABG PO2 124 mmHg (85-104); ABG TCO2 30 mEq/L (20-26)
[2019-12-07] MEDS ORDERED: *HR* HYDROcodone/Acet 5/325 mg TABLET PO PRN ×2 (14:34)
[2019-12-07] MEDS ORDERED: Ipratropium/Albuterol Neb 3 ML IH PRN (14:34)
[2019-12-07] MEDS ORDERED: Acetaminophen 325 MG TABLET PO PRN (14:34)
[2019-12-07] MEDS ORDERED: Naloxone 0.4 MG/ML INJ IVP PRN (14:34)
[2019-12-07] MEDS ORDERED: Ondansetron 4 MG/2 ML VIAL IVP PRN (14:34)
[2019-12-07] MEDS ORDERED: Norepinephrine 4 MG/254 ML IV.SOLN IVC SCH (14:34)
[2019-12-07] MEDS: Gabapentin 300 MG CAPSULE PO SCH ×2 (16:48→20:09)
[2019-12-07] MEDS: Insulin LISPRO 300 UNITS/3 ML VIAL SQ SCH (16:57)
[2019-12-07] MEDS ORDERED: DAPTOmycin 750 MG in 0.9 % Sodium Chloride 100 ML IVPB SCH (19:00)
[2019-12-07] MEDS ORDERED: Cefepime HCl 2,000 MG in Water for inj. (sterile) 20 ML IVP SCH (20:00)
[2019-12-07] MEDS ORDERED: 0.9 % Sodium Chloride 1,000 ML ONE (21:14)
[2019-12-07] MEDS ORDERED: 0.9 % Sodium Chloride 1,000 ML IV ONE (21:17)
[2019-12-07] MEDS: 0.9 % Sodium Chloride 1,000 ML IVC SCH (22:21)
[2019-12-08] MEDS ORDERED: *HR* Heparin 5,000 UNIT/ML VIAL IVP PRN ×3 (02:00→09:18)
[2019-12-08] MEDS ORDERED: Heparin 25,000 UNIT/250 ML D5W 25,000 UNIT/250 ML IV.SOLN IVC SCH (02:00)
[2019-12-08] MEDS ORDERED: Acetaminophen IV 1,000 MG/100 ML INFUS..BTL IVPB ONE (02:27)
[2019-12-08 03:34] LABS: Basophils # 0.1 K/mcL (0.0-0.2); Basophils % 0.3 %; Hematocrit 24.7 % (35.3-44.9); Hemoglobin 8.1 g/dL (11.5-15.4); Immature Granulocytes % 4.6 % (0-4); Lymphocytes # 0.8 K/mcL (0.6-4.6); Lymphocytes % 3.4 %; Mean Corpuscular HGB Conc 32.8 g/dL (31.6-35.5); Mean Corpuscular Hemoglobin 30.3 pg (28.0-33.3); Mean Corpuscular Volume 92.5 fL (83.0-100.0); Mean Platelet Volume 11.3 fL (9.4-12.4); Monocytes # 1.4 K/mcL (0.0-1.3); Monocytes % 5.8 %; Neutrophils # 20.8 K/mcL (1.6-8.9); Nucleated Red Blood Cells 0.2 /100 WBC (0); Platelet Count 292 K/mcL (140-400); Red Blood Count 2.67 M/mcL (3.82-4.97); Red Cell Distribution Width 14.9 % (11.5-14.5); Segmented Neutrophils % 85.9 %; White Blood Count 24.2 K/mcL (4.3-11.1)
[2019-12-08 03:54] LABS: BUN/Creatinine Ratio 35 (6-26); Blood Urea Nitrogen 33 mg/dL (8-23); Calcium 8.2 mg/dL (8.6-10.3); Carbon Dioxide 23 mEq/L (23-29); Chloride 101 mEq/L (98-107); Glucose 160 mg/dL (70-105); Osmolality,Calculated 291 (280-300); Potassium 3.8 mEq/L (3.5-5.1); Sodium 135 mEq/L (136-145); eGFR For African Americans > 60 (> 60); eGFR For Non-African Americans 60 (> 60)
[2019-12-08 04:14] LABS: Platelet Estimate Normal (Normal)
[2019-12-08] MEDS: Doxycycline 100 MG CAPSULE PO SCH (07:42)
[2019-12-08] MEDS: Gabapentin 300 MG CAPSULE PO SCH ×3 (07:42→19:58)
[2019-12-08] MEDS: Insulin LISPRO 300 UNITS/3 ML VIAL SQ SCH ×4 (07:43→19:59)
[2019-12-08] MEDS: 0.9 % Sodium Chloride 1,000 ML IVC SCH (07:44)
[2019-12-08] MEDS ORDERED: Ertapenem 1,000 MG in 0.9 % Sodium Chloride Mini Bag 100 ML IVPB SCH ×2 (09:00→10:00)
[2019-12-08] MEDS ORDERED: *HR* Amiodarone 200 MG TABLET PO SCH ×2 (09:00)
[2019-12-08] MEDS ORDERED: Pantoprazole 40 MG VIAL IVP SCH (09:00)
[2019-12-08] MEDS ORDERED: 0.9 % Sodium Chloride 1,000 ML IVC SCH (09:00)
[2019-12-08] MEDS ORDERED: Ondansetron 4 MG/2 ML VIAL IVP PRN (09:18)
[2019-12-08] MEDS ORDERED: Furosemide 20 MG/2 ML VIAL IVP ONE (09:18)
[2019-12-08] MEDS ORDERED: Dextrose Gel 15 GM/37.5 ML TUBE PO PRN ×2 (09:18)
[2019-12-08] MEDS ORDERED: *HR* Dextrose 50 % in Water (Syg) 50 ML SYRINGE IVP PRN (09:18)
[2019-12-08] MEDS ORDERED: Ipratropium/Albuterol Neb 3 ML IH PRN (09:18)
[2019-12-08] MEDS ORDERED: Naloxone 0.4 MG/ML INJ IVP PRN (09:18)
[2019-12-08] MEDS ORDERED: D5% in Water 1,000 ML IVC PRN (09:18)
[2019-12-08] MEDS: atenoloL 25 MG TABLET PO SCH (10:39)
[2019-12-08] MEDS: FLUoxetine 20 MG CAPSULE PO SCH (10:39)
[2019-12-08] MEDS: lamoTRIgine 100 MG TABLET PO SCH (10:39)
[2019-12-08] MEDS: Heparin 25,000 UNIT/250 ML D5W 25,000 UNIT/250 ML IV.SOLN IVC SCH ×3 (16:47→22:35)
[2019-12-08] MEDS: Cefepime HCl 2,000 MG in Water for inj. (sterile) 20 ML IVP SCH (16:48)
[2019-12-08] MEDS ORDERED: DAPTOmycin 750 MG in 0.9 % Sodium Chloride 100 ML IVPB SCH (19:00)
[2019-12-08] MEDS ORDERED: Doxycycline 100 MG CAPSULE PO SCH (21:00)
[2019-12-08] MEDS: Norepinephrine 4 MG/254 ML IV.SOLN IVC SCH (21:42)
[2019-12-08] MEDS: GuaiFENesin/Dextromethorphan TABLET PO SCH (22:34)
[2019-12-09 04:07] LABS: Hemoglobin 8.3 g/dL (11.5-15.4); Mean Corpuscular Volume 93.1 fL (83.0-100.0)
[2019-12-09 04:09] LABS: Basophils # 0.1 K/mcL (0.0-0.2); Basophils % 0.2 %; Eosinophils # 0.1 K/mcL (0.0-0.6); Eosinophils % 0.2 %; Hematocrit 25.5 % (35.3-44.9); Immature Granulocytes % 13.2 % (0-4); Lymphocytes # 2.6 K/mcL (0.6-4.6); Lymphocytes % 8.4 %; Mean Corpuscular HGB Conc 32.5 g/dL (31.6-35.5); Mean Corpuscular Hemoglobin 30.3 pg (28.0-33.3); Monocytes # 2.8 K/mcL (0.0-1.3); Monocytes % 8.8 %; Neutrophils # 21.7 K/mcL (1.6-8.9); Nucleated Red Blood Cells 0.4 /100 WBC (0); Platelet Count 235 K/mcL (140-400); Red Blood Count 2.74 M/mcL (3.82-4.97); Red Cell Distribution Width 14.9 % (11.5-14.5); Segmented Neutrophils % 69.2 %
[2019-12-09 04:19] LABS: White Blood Count 31.3 K/mcL (4.3-11.1)
[2019-12-09 04:23] LABS: BUN/Creatinine Ratio 38 (6-26); Blood Urea Nitrogen 31 mg/dL (8-23); Calcium 8.4 mg/dL (8.6-10.3); Carbon Dioxide 24 mEq/L (23-29); Chloride 98 mEq/L (98-107); Glucose 131 mg/dL (70-105); Osmolality,Calculated 278 (280-300); Phosphorous 2.1 mg/dL (2.7-4.5); Potassium 3.9 mEq/L (3.5-5.1); Sodium 130 mEq/L (136-145); eGFR For African Americans > 60 (> 60); eGFR For Non-African Americans > 60 (> 60)
[2019-12-09 04:59] LABS: Large Platelets Present (Not Present); Platelet Estimate Normal (Normal); Polychromasia 2+ (Not Present)
[2019-12-09 05:00] LABS: Anisocytosis 1+ (Not Present); Poikilocytosis 1+ (Not Present)
[2019-12-09] MEDS: Levothyroxine 25 MCG TABLET PO SCH (06:21)
[2019-12-09] MEDS: Cefepime HCl 2,000 MG in Water for inj. (sterile) 20 ML IVP SCH ×3 (06:33→21:24)
[2019-12-09] MEDS: Heparin 25,000 UNIT/250 ML D5W 25,000 UNIT/250 ML IV.SOLN IVC SCH ×2 (07:40→23:59)
[2019-12-09] MEDS: GuaiFENesin/Dextromethorphan TABLET PO SCH ×2 (08:25→21:23)
[2019-12-09] MEDS: FLUoxetine 20 MG CAPSULE PO SCH (08:26)
[2019-12-09] MEDS: Gabapentin 300 MG CAPSULE PO SCH ×3 (08:26→21:23)
[2019-12-09] MEDS: *HR* Amiodarone 200 MG TABLET PO SCH (08:26)
[2019-12-09] MEDS: lamoTRIgine 100 MG TABLET PO SCH (08:26)
[2019-12-09] MEDS: atenoloL 25 MG TABLET PO SCH (08:26)
[2019-12-09] MEDS: Insulin LISPRO 300 UNITS/3 ML VIAL SQ SCH ×4 (08:27→21:12)
[2019-12-09] MEDS ORDERED: Furosemide 20 MG/2 ML VIAL IVP ONE (08:59)
[2019-12-09] MEDS ORDERED: Ertapenem 1,000 MG in 0.9 % Sodium Chloride Mini Bag 100 ML IVPB SCH (09:00)
[2019-12-09] MEDS ORDERED: Isovue-370 500 ML BOTTLE IVP ONE ×2 (12:47→13:09)
[2019-12-09] MEDS ORDERED: *HR* HYDROmorphone (PF) 1 MG/ML SYRINGE IVP ONE (12:48)
[2019-12-09] MEDS: Sennosides/Docusate Sodium TABLET PO SCH (21:23)
[2019-12-09] MEDS: Insulin DETEMIR 100 UNIT/ML X5UNITS SQ SCH (21:53)
[2019-12-10] MEDS: Acetaminophen 325 MG TABLET PO PRN ×2 (00:54→18:42)
[2019-12-10] MEDS: Cefepime HCl 2,000 MG in Water for inj. (sterile) 20 ML IVP SCH ×3 (05:49→20:24)
[2019-12-10] MEDS: Levothyroxine 25 MCG TABLET PO SCH (05:56)
[2019-12-10 06:07] LABS: Hematocrit 24.8 % (35.3-44.9); Hemoglobin 7.9 g/dL (11.5-15.4); Mean Corpuscular HGB Conc 31.9 g/dL (31.6-35.5); Mean Corpuscular Hemoglobin 29.9 pg (28.0-33.3); Mean Corpuscular Volume 93.9 fL (83.0-100.0); Mean Platelet Volume 10.8 fL (9.4-12.4); Nucleated Red Blood Cells 0.2 /100 WBC (0); Platelet Count 203 K/mcL (140-400); Red Blood Count 2.64 M/mcL (3.82-4.97); White Blood Count 24.4 K/mcL (4.3-11.1)
[2019-12-10 06:26] LABS: BUN/Creatinine Ratio 38 (6-26); Blood Urea Nitrogen 34 mg/dL (8-23); Calcium 8.6 mg/dL (8.6-10.3); Carbon Dioxide 25 mEq/L (23-29); Chloride 98 mEq/L (98-107); Glucose 146 mg/dL (70-105); Osmolality,Calculated 280 (280-300); Potassium 3.8 mEq/L (3.5-5.1); Sodium 130 mEq/L (136-145); eGFR For African Americans > 60 (> 60); eGFR For Non-African Americans > 60 (> 60)
[2019-12-10 06:43] LABS: Lymphocytes # 5.4 K/mcL (0.6-4.6); Monocytes # 0.5 K/mcL (0.0-1.3); Neutrophils # 18.5 K/mcL (1.6-8.9)
[2019-12-10 06:44] LABS: Anisocytosis 1+ (Not Present); Platelet Estimate Normal (Normal); Polychromasia 1+ (Not Present); Smudge Cells Present (Not Present)
[2019-12-10] MEDS: FLUoxetine 20 MG CAPSULE PO SCH (07:47)
[2019-12-10] MEDS: Insulin LISPRO 300 UNITS/3 ML VIAL SQ SCH ×4 (07:47→20:09)
[2019-12-10] MEDS: Sennosides/Docusate Sodium TABLET PO SCH ×2 (07:48→20:26)
[2019-12-10] MEDS: Gabapentin 300 MG CAPSULE PO SCH ×3 (07:48→20:24)
[2019-12-10] MEDS: lamoTRIgine 100 MG TABLET PO SCH (07:48)
[2019-12-10] MEDS: *HR* Amiodarone 200 MG TABLET PO SCH (07:48)
[2019-12-10] MEDS: GuaiFENesin/Dextromethorphan TABLET PO SCH ×2 (07:48→20:24)
[2019-12-10] MEDS: atenoloL 25 MG TABLET PO SCH (07:48)
[2019-12-10] MEDS: Insulin DETEMIR 100 UNIT/ML X5UNITS SQ SCH ×2 (07:50→23:44)
[2019-12-10] MEDS: Heparin 25,000 UNIT/250 ML D5W 25,000 UNIT/250 ML IV.SOLN IVC SCH (15:59)
[2019-12-11 04:14] LABS: Basophils # 0.1 K/mcL (0.0-0.2); Basophils % 0.6 %; Eosinophils # 0.2 K/mcL (0.0-0.6); Eosinophils % 0.9 %; Hematocrit 22.1 % (35.3-44.9); Hemoglobin 7.2 g/dL (11.5-15.4); Immature Granulocytes % 17.6 % (0-4); Lymphocytes # 2.6 K/mcL (0.6-4.6); Lymphocytes % 13.5 %; Mean Corpuscular HGB Conc 32.6 g/dL (31.6-35.5); Mean Corpuscular Hemoglobin 30.6 pg (28.0-33.3); Mean Platelet Volume 10.9 fL (9.4-12.4); Monocytes # 1.6 K/mcL (0.0-1.3); Monocytes % 8.3 %; Nucleated Red Blood Cells 0.3 /100 WBC (0); Platelet Count 164 K/mcL (140-400); Red Blood Count 2.35 M/mcL (3.82-4.97); Segmented Neutrophils % 59.1 %; White Blood Count 19.2 K/mcL (4.3-11.1)
[2019-12-11 04:17] LABS: Neutrophils # 11.4 K/mcL (1.6-8.9)
[2019-12-11 04:32] LABS: BUN/Creatinine Ratio 40 (6-26); Blood Urea Nitrogen 27 mg/dL (8-23); Calcium 8.3 mg/dL (8.6-10.3); Carbon Dioxide 27 mEq/L (23-29); Chloride 100 mEq/L (98-107); Glucose 115 mg/dL (70-105); Magnesium 1.9 mg/dL (1.6-2.6); Osmolality,Calculated 280 (280-300); Sodium 132 mEq/L (136-145); eGFR For African Americans > 60 (> 60); eGFR For Non-African Americans > 60 (> 60)
[2019-12-11] MEDS: *HR* Heparin 5,000 UNIT/ML VIAL IVP PRN (04:32)
[2019-12-11 04:46] LABS: Toxic Granulation Present (Not Present)
[2019-12-11 04:47] LABS: Hypochromasia Present (Not Present); Platelet Estimate Normal (Normal); Polychromasia 1+ (Not Present)
[2019-12-11] MEDS: Levothyroxine 25 MCG TABLET PO SCH (05:40)
[2019-12-11] MEDS: Cefepime HCl 2,000 MG in Water for inj. (sterile) 20 ML IVP SCH ×3 (05:40→21:05)
[2019-12-11] MEDS ORDERED: Iron Sucrose Complex 400 MG in 0.9 % Sodium Chloride 250 ML IVPB ONE (08:17)
[2019-12-11] MEDS ORDERED: Thiamine (B-1) 100 MG in 0.9 % Sodium Chloride 50 ML IVPB ONE (08:18)
[2019-12-11] MEDS ORDERED: Folic Acid 1 MG in 0.9 % Sodium Chloride 50 ML IVPB ONE (08:18)
[2019-12-11] MEDS: Insulin LISPRO 300 UNITS/3 ML VIAL SQ SCH ×4 (08:36→21:07)
[2019-12-11] MEDS: GuaiFENesin/Dextromethorphan TABLET PO SCH ×2 (08:37→21:06)
[2019-12-11] MEDS: Sennosides/Docusate Sodium TABLET PO SCH ×2 (08:37→21:07)
[2019-12-11] MEDS: Gabapentin 300 MG CAPSULE PO SCH ×3 (08:37→21:07)
[2019-12-11] MEDS: FLUoxetine 20 MG CAPSULE PO SCH (08:37)
[2019-12-11] MEDS: lamoTRIgine 100 MG TABLET PO SCH (08:37)
[2019-12-11] MEDS: *HR* Amiodarone 200 MG TABLET PO SCH (08:37)
[2019-12-11] MEDS: Insulin DETEMIR 100 UNIT/ML X5UNITS SQ SCH ×2 (08:42→21:08)
[2019-12-11] MEDS: Heparin 25,000 UNIT/250 ML D5W 25,000 UNIT/250 ML IV.SOLN IVC SCH (09:33)
[2019-12-11] MEDS ORDERED: 0.9 % Sodium Chloride 250 ML ONE (10:09)
[2019-12-11] MEDS: Acetaminophen 325 MG TABLET PO PRN (14:11)
[2019-12-11] MEDS ORDERED: Furosemide 20 MG/2 ML VIAL IVP ONE (14:52)
[2019-12-12 01:49] LABS: Hematocrit 25.9 % (35.3-44.9); Hemoglobin 8.2 g/dL (11.5-15.4); Mean Corpuscular HGB Conc 31.7 g/dL (31.6-35.5); Mean Corpuscular Hemoglobin 29.9 pg (28.0-33.3); Mean Corpuscular Volume 94.5 fL (83.0-100.0); Mean Platelet Volume 10.6 fL (9.4-12.4); Nucleated Red Blood Cells 0.9 /100 WBC (0); Platelet Count 153 K/mcL (140-400); Red Blood Count 2.74 M/mcL (3.82-4.97); Red Cell Distribution Width 14.8 % (11.5-14.5); White Blood Count 17.6 K/mcL (4.3-11.1)
[2019-12-12 02:08] LABS: BUN/Creatinine Ratio 31 (6-26); Blood Urea Nitrogen 22 mg/dL (8-23); Calcium 8.3 mg/dL (8.6-10.3); Carbon Dioxide 28 mEq/L (23-29); Chloride 101 mEq/L (98-107); Glucose 108 mg/dL (70-105); Osmolality,Calculated 282 (280-300); Potassium 4.1 mEq/L (3.5-5.1); Sodium 134 mEq/L (136-145); eGFR For African Americans > 60 (> 60); eGFR For Non-African Americans > 60 (> 60)
[2019-12-12 02:20] LABS: Anisocytosis 1+ (Not Present); Lymphocytes # 3.5 K/mcL (0.6-4.6); Monocytes # 0.4 K/mcL (0.0-1.3); Neutrophils # 13.4 K/mcL (1.6-8.9); Platelet Estimate Normal (Normal); Polychromasia 1+ (Not Present)
[2019-12-12] MEDS: Heparin 25,000 UNIT/250 ML D5W 25,000 UNIT/250 ML IV.SOLN IVC SCH ×2 (03:21→22:37)
[2019-12-12] MEDS: Cefepime HCl 2,000 MG in Water for inj. (sterile) 20 ML IVP SCH ×3 (06:16→20:16)
[2019-12-12] MEDS: Levothyroxine 25 MCG TABLET PO SCH (06:17)
[2019-12-12] MEDS: Gabapentin 300 MG CAPSULE PO SCH ×3 (08:24→20:16)
[2019-12-12] MEDS: Insulin LISPRO 300 UNITS/3 ML VIAL SQ SCH ×4 (08:24→20:10)
[2019-12-12] MEDS: FLUoxetine 20 MG CAPSULE PO SCH (08:24)
[2019-12-12] MEDS: Sennosides/Docusate Sodium TABLET PO SCH ×2 (08:24→20:15)
[2019-12-12] MEDS: *HR* Amiodarone 200 MG TABLET PO SCH (08:25)
[2019-12-12] MEDS: lamoTRIgine 100 MG TABLET PO SCH (08:25)
[2019-12-12] MEDS: GuaiFENesin/Dextromethorphan TABLET PO SCH ×2 (08:25→20:16)
[2019-12-12] MEDS: Insulin DETEMIR 100 UNIT/ML X5UNITS SQ SCH ×2 (08:29→20:16)
[2019-12-13 02:14] LABS: Hematocrit 26.9 % (35.3-44.9); Hemoglobin 8.5 g/dL (11.5-15.4); Mean Corpuscular HGB Conc 31.6 g/dL (31.6-35.5); Mean Corpuscular Hemoglobin 30.1 pg (28.0-33.3); Mean Corpuscular Volume 95.4 fL (83.0-100.0); Mean Platelet Volume 11.1 fL (9.4-12.4); Nucleated Red Blood Cells 0.4 /100 WBC (0); Platelet Count 158 K/mcL (140-400); Red Blood Count 2.82 M/mcL (3.82-4.97); Red Cell Distribution Width 15.1 % (11.5-14.5); White Blood Count 17.1 K/mcL (4.3-11.1)
[2019-12-13 02:33] LABS: BUN/Creatinine Ratio 28 (6-26); Blood Urea Nitrogen 18 mg/dL (8-23); Calcium 8.6 mg/dL (8.6-10.3); Carbon Dioxide 27 mEq/L (23-29); Chloride 102 mEq/L (98-107); Glucose 121 mg/dL (70-105); Magnesium 1.9 mg/dL (1.6-2.6); Osmolality,Calculated 281 (280-300); Potassium 4.3 mEq/L (3.5-5.1); Sodium 134 mEq/L (136-145); eGFR For African Americans > 60 (> 60); eGFR For Non-African Americans > 60 (> 60)
[2019-12-13 02:40] LABS: Lymphocytes # 0.7 K/mcL (0.6-4.6); Monocytes # 0.3 K/mcL (0.0-1.3); Neutrophils # 15.7 K/mcL (1.6-8.9)
[2019-12-13 02:41] LABS: Anisocytosis 1+ (Not Present); Hypochromasia Present (Not Present); Macrocytosis Present (Not Present); Platelet Estimate Normal (Normal); Polychromasia 1+ (Not Present)
[2019-12-13 02:42] LABS: Smudge Cells Present (Not Present)
[2019-12-13] MEDS: Cefepime HCl 2,000 MG in Water for inj. (sterile) 20 ML IVP SCH ×3 (06:00→21:52)
[2019-12-13] MEDS: Levothyroxine 25 MCG TABLET PO SCH (06:01)
[2019-12-13] MEDS: Acetaminophen 325 MG TABLET PO PRN (06:16)
[2019-12-13] MEDS: Insulin LISPRO 300 UNITS/3 ML VIAL SQ SCH ×4 (07:39→22:05)
[2019-12-13] MEDS: Sennosides/Docusate Sodium TABLET PO SCH ×2 (08:09→22:05)
[2019-12-13] MEDS: *HR* Amiodarone 200 MG TABLET PO SCH (08:09)
[2019-12-13] MEDS: GuaiFENesin/Dextromethorphan TABLET PO SCH ×2 (08:09→21:51)
[2019-12-13] MEDS: FLUoxetine 20 MG CAPSULE PO SCH (08:09)
[2019-12-13] MEDS: lamoTRIgine 100 MG TABLET PO SCH (08:09)
[2019-12-13] MEDS: Gabapentin 300 MG CAPSULE PO SCH ×3 (08:09→21:51)
[2019-12-13] MEDS: Insulin DETEMIR 100 UNIT/ML X5UNITS SQ SCH ×2 (08:10→21:57)
[2019-12-13] MEDS: Heparin 25,000 UNIT/250 ML D5W 25,000 UNIT/250 ML IV.SOLN IVC SCH (21:44)
[2019-12-14 04:34] LABS: Hematocrit 28.3 % (35.3-44.9); Hemoglobin 8.8 g/dL (11.5-15.4); Mean Corpuscular HGB Conc 31.1 g/dL (31.6-35.5); Mean Corpuscular Hemoglobin 30.2 pg (28.0-33.3); Mean Corpuscular Volume 97.3 fL (83.0-100.0); Nucleated Red Blood Cells 0.1 /100 WBC (0); Platelet Count 176 K/mcL (140-400); Red Blood Count 2.91 M/mcL (3.82-4.97); Red Cell Distribution Width 15.5 % (11.5-14.5); White Blood Count 14.4 K/mcL (4.3-11.1)
[2019-12-14 04:49] LABS: BUN/Creatinine Ratio 28 (6-26); Blood Urea Nitrogen 17 mg/dL (8-23); Calcium 8.5 mg/dL (8.6-10.3); Carbon Dioxide 25 mEq/L (23-29); Chloride 101 mEq/L (98-107); Glucose 135 mg/dL (70-105); Osmolality,Calculated 278 (280-300); Potassium 4.3 mEq/L (3.5-5.1); Sodium 132 mEq/L (136-145); eGFR For African Americans > 60 (> 60); eGFR For Non-African Americans > 60 (> 60)
[2019-12-14] MEDS: Cefepime HCl 2,000 MG in Water for inj. (sterile) 20 ML IVP SCH ×3 (05:24→19:46)
[2019-12-14] MEDS: *HR* Heparin 5,000 UNIT/ML VIAL IVP PRN (05:25)
[2019-12-14] MEDS: Levothyroxine 25 MCG TABLET PO SCH (05:27)
[2019-12-14 06:02] LABS: Lymphocytes # 2.3 K/mcL (0.6-4.6); Monocytes # 1.2 K/mcL (0.0-1.3); Neutrophils # 10.9 K/mcL (1.6-8.9); Platelet Estimate Normal (Normal)
[2019-12-14 06:03] LABS: Anisocytosis 1+ (Not Present); Polychromasia 1+ (Not Present)
[2019-12-14 06:04] LABS: Basophilic Stippling 1+ (Not Present)
[2019-12-14] MEDS: FLUoxetine 20 MG CAPSULE PO SCH (08:13)
[2019-12-14] MEDS: GuaiFENesin/Dextromethorphan TABLET PO SCH ×2 (08:13→19:46)
[2019-12-14] MEDS: *HR* Amiodarone 200 MG TABLET PO SCH (08:13)
[2019-12-14] MEDS: lamoTRIgine 100 MG TABLET PO SCH (08:13)
[2019-12-14] MEDS: Insulin DETEMIR 100 UNIT/ML X5UNITS SQ SCH ×2 (08:14→20:57)
[2019-12-14] MEDS: Gabapentin 300 MG CAPSULE PO SCH ×3 (08:14→19:46)
[2019-12-14] MEDS: Sennosides/Docusate Sodium TABLET PO SCH ×2 (08:14→19:46)
[2019-12-14] MEDS: Insulin LISPRO 300 UNITS/3 ML VIAL SQ SCH ×4 (08:16→20:16)
[2019-12-14] MEDS: *HR* Rivaroxaban 15 MG TABLET PO SCH ×2 (09:51→16:52)
[2019-12-15] MEDS: Levothyroxine 25 MCG TABLET PO SCH (05:10)
[2019-12-15] MEDS: Cefepime HCl 2,000 MG in Water for inj. (sterile) 20 ML IVP SCH ×3 (05:10→23:03)
[2019-12-15] MEDS: FLUoxetine 20 MG CAPSULE PO SCH (08:45)
[2019-12-15] MEDS: Gabapentin 300 MG CAPSULE PO SCH ×3 (08:46→20:38)
[2019-12-15] MEDS: GuaiFENesin/Dextromethorphan TABLET PO SCH ×2 (08:46→20:38)
[2019-12-15] MEDS: *HR* Amiodarone 200 MG TABLET PO SCH (08:46)
[2019-12-15] MEDS: Sennosides/Docusate Sodium TABLET PO SCH ×2 (08:47→20:38)
[2019-12-15] MEDS: *HR* Rivaroxaban 15 MG TABLET PO SCH ×2 (08:47→16:03)
[2019-12-15] MEDS: lamoTRIgine 100 MG TABLET PO SCH (08:47)
[2019-12-15] MEDS: Insulin DETEMIR 100 UNIT/ML X5UNITS SQ SCH ×2 (08:49→20:38)
[2019-12-15] MEDS: Insulin LISPRO 300 UNITS/3 ML VIAL SQ SCH ×3 (10:10→21:00)
[2019-12-15] MEDS: Acetaminophen 325 MG TABLET PO PRN (14:49)
[2019-12-16 04:21] LABS: Hematocrit 27.6 % (35.3-44.9); Hemoglobin 8.4 g/dL (11.5-15.4); Mean Corpuscular HGB Conc 30.4 g/dL (31.6-35.5); Mean Corpuscular Volume 98.6 fL (83.0-100.0); Platelet Count 230 K/mcL (140-400); Red Cell Distribution Width 15.9 % (11.5-14.5); White Blood Count 8.9 K/mcL (4.3-11.1)
[2019-12-16 04:32] LABS: BUN/Creatinine Ratio 23 (6-26); Blood Urea Nitrogen 15 mg/dL (8-23); Calcium 8.7 mg/dL (8.6-10.3); Carbon Dioxide 25 mEq/L (23-29); Chloride 103 mEq/L (98-107); Glucose 110 mg/dL (70-105); Osmolality,Calculated 279 (280-300); Potassium 4.4 mEq/L (3.5-5.1); Sodium 134 mEq/L (136-145); eGFR For African Americans > 60 (> 60); eGFR For Non-African Americans > 60 (> 60)
[2019-12-16] MEDS: Levothyroxine 25 MCG TABLET PO SCH (05:36)
[2019-12-16] MEDS: Cefepime HCl 2,000 MG in Water for inj. (sterile) 20 ML IVP SCH ×3 (05:37→20:05)
[2019-12-16] MEDS: Insulin LISPRO 300 UNITS/3 ML VIAL SQ SCH ×4 (07:41→23:36)
[2019-12-16] MEDS: Insulin DETEMIR 100 UNIT/ML X5UNITS SQ SCH ×2 (07:42→22:04)
[2019-12-16] MEDS: Sennosides/Docusate Sodium TABLET PO SCH ×2 (07:42→20:05)
[2019-12-16] MEDS: Gabapentin 300 MG CAPSULE PO SCH ×3 (07:42→20:05)
[2019-12-16] MEDS: GuaiFENesin/Dextromethorphan TABLET PO SCH ×2 (07:42→20:05)
[2019-12-16] MEDS: FLUoxetine 20 MG CAPSULE PO SCH (07:42)
[2019-12-16] MEDS: *HR* Rivaroxaban 15 MG TABLET PO SCH ×2 (07:42→16:38)
[2019-12-16] MEDS: lamoTRIgine 100 MG TABLET PO SCH (07:42)
[2019-12-16] MEDS: *HR* Amiodarone 200 MG TABLET PO SCH (07:42)
[2019-12-16] MEDS: Acetaminophen 325 MG TABLET PO PRN (09:57)
[2019-12-17] MEDS: Cefepime HCl 2,000 MG in Water for inj. (sterile) 20 ML IVP SCH ×2 (05:54→14:10)
[2019-12-17] MEDS: Levothyroxine 25 MCG TABLET PO SCH (05:54)
[2019-12-17] MEDS: Insulin LISPRO 300 UNITS/3 ML VIAL SQ SCH ×2 (08:21→12:25)
[2019-12-17] MEDS: Gabapentin 300 MG CAPSULE PO SCH ×2 (08:49→14:10)
[2019-12-17] MEDS: GuaiFENesin/Dextromethorphan TABLET PO SCH (08:49)
[2019-12-17] MEDS: *HR* Amiodarone 200 MG TABLET PO SCH (08:49)
[2019-12-17] MEDS: FLUoxetine 20 MG CAPSULE PO SCH (08:49)
[2019-12-17] MEDS: Sennosides/Docusate Sodium TABLET PO SCH (08:49)
[2019-12-17] MEDS: *HR* Rivaroxaban 15 MG TABLET PO SCH (08:49)
[2019-12-17] MEDS: Insulin DETEMIR 100 UNIT/ML X5UNITS SQ SCH (08:50)
[2019-12-17] MEDS: lamoTRIgine 100 MG TABLET PO SCH (08:50)
[2019-12-17 11:28] VITALS: BP 109/72
== END 2019-12-17 16:14 | DRG 856 ==
LOC: EMEROOARM 07:58 → ICNU 11:16 → SUATTDRO 11:17 → ICNU 11:18 → 3NENU 12-09 18:13 → 2NNU 12-13 11:32
PROVIDERS: ADMIT Pediatrics; ATTEND Internal Medicine

== ENCOUNTER 2021-08-06 14:24 | Observation (INO) ==
[2021-08-06 15:17] LABS: Basophils # 0.1 K/mcL (0.0-0.2); Basophils % 0.5 %; Eosinophils # 0.2 K/mcL (0.0-0.6); Eosinophils % 1.6 %; Hematocrit 44.4 % (35.3-44.9); Hemoglobin 14.3 g/dL (11.5-15.4); Immature Granulocytes % 0.3 % (0-4); Lymphocytes # 1.5 K/mcL (0.6-4.6); Lymphocytes % 15.8 %; Mean Corpuscular HGB Conc 32.2 g/dL (31.6-35.5); Mean Corpuscular Volume 96.1 fL (83.0-100.0); Mean Platelet Volume 11.3 fL (9.4-12.4); Monocytes # 0.9 K/mcL (0.0-1.3); Monocytes % 9.5 %; Neutrophils # 6.8 K/mcL (1.6-8.9); Platelet Count 239 K/mcL (140-400); Red Blood Count 4.62 M/mcL (3.82-4.97); Segmented Neutrophils % 72.3 %; White Blood Count 9.5 K/mcL (4.3-11.1)
[2021-08-06 15:21] LABS: INR 1.1
[2021-08-06 15:24] LABS: Activated Partial Thrombo Time 30.3 Seconds (26.0-36.0)
[2021-08-06 15:45] LABS: BUN/Creatinine Ratio 29 (6-26); Blood Urea Nitrogen 22 mg/dL (8-23); Calcium 9.6 mg/dL (8.6-10.3); Carbon Dioxide 24 mEq/L (23-29); Chloride 101 mEq/L (98-107); Glucose 98 mg/dL (70-105); Osmolality,Calculated 281 (280-300); Potassium 4.4 mEq/L (3.5-5.1); Sodium 134 mEq/L (136-145); Troponin I < 0.03 ng/mL (< 0.04); eGFR For African Americans > 60 (> 60); eGFR For Non-African Americans > 60 (> 60)
[2021-08-06] MEDS ORDERED: Aspirin 325 MG TABLET PO ONE (16:17)
[2021-08-06] MEDS ORDERED: Ondansetron 4 MG/2 ML VIAL IVP PRN (16:21)
[2021-08-06] MEDS ORDERED: Naloxone 0.4 MG/ML INJ IVP PRN (16:21)
[2021-08-06] MEDS ORDERED: Nitroglycerin 0.4 MG TAB.SUBL SL PRN (16:24)
[2021-08-06] MEDS: Budesonide/Formoterol 160/4.5 1 PUFF INH IH SCH (20:36)
[2021-08-06] MEDS: Morphine Sulfate 2 MG/ML SYRINGE IVP PRN (21:26)
[2021-08-06] MEDS: *HR* Heparin 5,000 UNIT/ML VIAL SQ SCH (21:27)
[2021-08-06] MEDS ORDERED: Ketorolac 30 MG/ML VIAL IVP ONE (23:25)
[2021-08-07 02:54] LABS: Basophils # 0.1 K/mcL (0.0-0.2); Basophils % 0.7 %; Eosinophils # 0.3 K/mcL (0.0-0.6); Eosinophils % 3.1 %; Hematocrit 40.5 % (35.3-44.9); Hemoglobin 13.2 g/dL (11.5-15.4); Immature Granulocytes % 0.2 % (0-4); Lymphocytes # 2.1 K/mcL (0.6-4.6); Lymphocytes % 24.6 %; Mean Corpuscular HGB Conc 32.6 g/dL (31.6-35.5); Mean Corpuscular Hemoglobin 31.3 pg (28.0-33.3); Monocytes # 1.1 K/mcL (0.0-1.3); Monocytes % 12.8 %; Neutrophils # 4.9 K/mcL (1.6-8.9); Platelet Count 213 K/mcL (140-400); Red Blood Count 4.22 M/mcL (3.82-4.97); Red Cell Distribution Width 13.7 % (11.5-14.5); Segmented Neutrophils % 58.6 %; White Blood Count 8.3 K/mcL (4.3-11.1)
[2021-08-07 03:15] LABS: BUN/Creatinine Ratio 26 (6-26); Blood Urea Nitrogen 23 mg/dL (8-23); Calcium 9.2 mg/dL (8.6-10.3); Carbon Dioxide 24 mEq/L (23-29); Chloride 106 mEq/L (98-107); Glucose 100 mg/dL (70-105); Magnesium 1.8 mg/dL (1.6-2.6); Osmolality,Calculated 280 (280-300); Sodium 133 mEq/L (136-145); eGFR For African Americans > 60 (> 60); eGFR For Non-African Americans > 60 (> 60)
[2021-08-07] MEDS: *HR* Heparin 5,000 UNIT/ML VIAL SQ SCH ×3 (05:29→21:22)
[2021-08-07] MEDS: Aspirin Enteric Coated 81 MG Tablet PO SCH (08:55)
[2021-08-07] MEDS: BuPROPion SR (12 HR) 100 MG TABLET PO SCH (08:55)
[2021-08-07] MEDS: lamoTRIgine 100 MG TABLET PO SCH (08:56)
[2021-08-07] MEDS: FLUoxetine 20 MG CAPSULE PO SCH (08:56)
[2021-08-07] MEDS ORDERED: Regadenoson 0.4 MG/5 ML SYRINGE IVP ONE (09:36)
[2021-08-07] MEDS ORDERED: Perflutren Lipid Microsphere 1.3 ML in 0.9 % Sodium Chloride 8.7 ML IVP PRN (11:21)
[2021-08-07] MEDS: Budesonide/Formoterol 160/4.5 1 PUFF INH IH SCH ×2 (11:36→20:27)
[2021-08-07] MEDS: Morphine Sulfate 2 MG/ML SYRINGE IVP PRN (21:21)
[2021-08-07] MEDS ORDERED: Acetaminophen 325 MG TABLET PO PRN (22:15)
[2021-08-08 03:56] LABS: Chol/HDL Ratio 2.6 (0-4.9)
[2021-08-08] MEDS: *HR* Heparin 5,000 UNIT/ML VIAL SQ SCH (05:44)
[2021-08-08] MEDS: Budesonide/Formoterol 160/4.5 1 PUFF INH IH SCH (07:40)
[2021-08-08 08:17] VITALS: BP 108/73; PULSE 63; TEMP 97.8; O2SAT 96
[2021-08-08] MEDS: BuPROPion SR (12 HR) 100 MG TABLET PO SCH (09:32)
[2021-08-08] MEDS: Aspirin Enteric Coated 81 MG Tablet PO SCH (09:32)
[2021-08-08] MEDS: lamoTRIgine 100 MG TABLET PO SCH (09:33)
[2021-08-08] MEDS: FLUoxetine 20 MG CAPSULE PO SCH (09:34)
== END 2021-08-08 12:05 | disposition home or self-care (01) ==
LOC: 3BNU 14:24 → EMEROOARM 14:24 → SUATTDRO 16:23 → 3BNU 16:51
PROVIDERS: ADMIT Student in an Organized Health Care Education/Training Program; ATTEND Internal Medicine